=== PATIENT | female | born 1945 | race African-American/Black ===

== ENCOUNTER 2017-04-22 12:05 | Inpatient (IN) ==
--- NOTE | 2017-04-22 13:38 | Diag Imaging Result Doc PS360 ---
EXAM: XRAY HIP UNILATERAL RT HISTORY: deformity TECHNIQUE: Portable AP, two views COMPARISON: None. FINDINGS: There is an oblique fracture through the proximal femoral shaft. There may be a large fracture fragment. The fracture extends to the lesser trochanter. The femoral head remains in the acetabulum. Long-standing arthritic changes to the hip. IMPRESSION: Spiral fracture to the proximal femur Electronically signed by Nahun Hernandez 04/22/2017 1:36 PM
[2017-04-22 13:50] LABS: INR 1.06; PROTIME 11.2 Seconds (9.2-11.7)
[2017-04-22 13:57] LABS: ALBUMIN 3.5 g/dL (3.5-5.0); CALCIUM 8.7 mg/dL (8.8-10.2); POTASSIUM 4.3 mmol/L (3.5-5.1); TOTAL BILIRUBIN 0.39 mg/dL (0.20-1.00); TOTAL PROTEIN 7.9 g/dL (6.3-8.3)
[2017-04-22 14:06] LABS: BASO% 0.1 % (0.0-0.8); EOS% 1.4 % (0.0-10.0); HEMATOCRIT 35.9 % (37.0-47.0); HEMOGLOBIN 11.8 g/dL (12.0-16.0); IMM GRAN# 0.02 X1000 (0.0-0.04); IMM GRAN% 0.3 % (0.0-0.5); LYMPH# 1.78 X1000 (1.2-3.4); LYMPH% 25.5 % (20.5-51.1); MANUAL DIFF NEEDED? YES; MCH 30.3 PG (27-31); MCHC 32.9 g/dL (33-37); MCV 92.1 FL (81-99); MONO# 1.36 X1000 (0.11-0.59); MONO% 19.5 % (1.7-9.3); MPV 9.5 FL (7.4-10.4); NEUT% 53.2 % (42.2-75.2); PLT 253 X1000 (130-400)
--- NOTE | 2017-04-22 14:11 | Diag Imaging Result Doc PS360 ---
EXAM: CHEST-1 VIEW HISTORY: hip fx ? pre-op TECHNIQUE: Portable upright AP COMPARISON: 04/04/2013 FINDINGS: There is a right-sided portacatheter. No pneumothorax. The patient is rotated to the right. The lungs are well expanded. There are no infiltrates. No pleural effusions identified. IMPRESSION: Negative exam. Electronically signed by Nahun Hernandez 04/22/2017 2:08 PM
[2017-04-22 14:23] LABS: LYMPHS 32 % (21-51); MONO 13 % (1-9)
--- NOTE | 2017-04-22 14:48 | PROVIDER DOCUMENTATION ---
This chart was entered by Du Crawford Scribe, acting as scribe for Ryan Kramer MD. HPI-Musculoskeletal Pain/Inj - GENERAL Stated Complaint: HIP FRACTURE Time Seen by Provider: 04/22/17 12:21 Source: patient, EMS, RN notes reviewed - HX OF PRESENT ILLNESS-MUSKULOSKELTAL Nature of Presenting Problem: patient is a 72 y/o F that presents to the Er with right hip pain. Patient slipped 24 hours ago. she had outpatient xray done at nursing and it revealed a introchanteric fx. Sent here for admission and ortho consult. Quality of Pain: reports: dull Severity in ED: moderate Onset/Duration: abrupt, 24 hours ago Timing: still present Modifying Factors: worse with: movement Any recent injury?: No Locality of Occurance: Home Similar Symptoms Previously?: No Recently seen or treated by another doctor?: No - FALL INJURY Location of Pain/Injury: reports: lower extremity (right hip) Pain Radiation: reports: no radiation Reason for Fall: reports: slipped Symptoms prior to fall:: reports: none Loss of Consciousness: no loss of consciousness Injury Associated Symptoms: reports: joint pain. denies: diaphoresis, dizziness , headaches, vomiting Review of Systems - Adult - REVIEW OF SYSTEMS - ADULT Constitutional: reports: no symptoms reported Eyes: reports: no symptoms reported Ears, Nose, Mouth & Throat: reports: no symptoms reported Cardiovascular: reports: no symptoms reported Respiratory: reports: no symptoms reported Gastrointestinal: reports: no symptoms reported Genitourinary: reports: no symptoms reported Musculoskeletal: reports: joint pain. denies: back pain, neck pain Integumentary: reports: no symptoms reported Neurological: reports: no symptoms reported Psychiatric: reports: no symptoms reported Endocrine: reports: no symptoms reported Hematologic/Lymphatic: reports: no symptoms reported Allergic/Immunologic: reports: no symptoms reported All Other Systems: Reviewed and Negative Past History - Adult - PAST MEDICAL HISTORY-ADULT Review of Records: reports: Old Records Reviewed, Nursing Assessment Review, Medications Reviewed Musculoskeletal: reports: arthritis Neurological: reports: CVA, stroke deficits (right sided) - PRIOR SURGERIES/PROCEDURES Surgical/Procedure History: reports: reviewed, not pertinent - IMMUNIZATION STATUS Childhood Immunizations: See Nurse Assessment Flu Vaccine: See Nurse Assessment - FAMILY HISTORY Family History: reviewed, not pertinent - SOCIAL HISTORY Smoking: non-smoker Living Situation: care facility Physical Exam-Injury Related - Physical Exam-Injury Related Initial Vital Signs Reviewed: Yes General Appearance: alert, no apparent distress Eyes: PERRL/EOMI, pink conjunctivae Head, Ears, Nose, Mouth & Throat: normocephalic/atraumatic, moist mucous membranes, normal ENT inspection Neck: non-tender, full range of motion, normal inspection Respiratory: lungs clear, normal breath sounds, no respiratory distress, no accessory muscle use Cardiovascular: normal peripheral pulses, regular rate, rhythm, no edema Abdominal Exam: normal bowel sounds, non tender, soft Extremity: normal capillary refill, deformity (right hip with shortening and external rotation) Integumentary: normal color, warm/dry Neurologic: motor weakness (right sided previous cva). negative: aphasia, EOM palsy, facial droop Psych/Mental Status: normal mood/affect, normal thought content, normal thought process, oriented x 3 - Glascow Coma Score Best Eye Response (Danyelle): (4) open spontaneously Best Verbal Response (Danyelle): (5) oriented Best Motor Response ([place]): (6) obeys commands [place] Total: 15 Progress - PLAN OF CARE/RESULTS Progress/Plan/Lab Results: Vital Signs - 8 hr 04/22/17 12:41 04/22/17 13:00 04/22/17 14:00 Temperature 98 F Pulse Rate 91 H 82 78 Respiratory Rate 14 16 15 Blood Pressure 143/85 126/79 123/66 O2 Sat by Pulse Oximetry 94 L 94 L 97 Laboratory Results - last 24 hr 04/22/17 04/22/17 04/22/17 13:20 13:20 13:20 WBC 6.98 RBC 3.90 L Hgb 11.8 L Hct 35.9 L MCV 92.1 MCH 30.3 MCHC 32.9 L RDW Std Deviation 12.0 Plt Count 253 MPV 9.5 Immature Gran % (Auto) 0.3 Neut % (Auto) 53.2 Lymph % (Auto) 25.5 Towns % (Auto) 19.5 H Eos % (Auto) 1.4 Baso % (Auto) 0.1 Immature Gran # (Auto) 0.02 Neut # (Auto) 3.71 Lymph # (Auto) 1.78 Towns # (Auto) 1.36 H Eos # (Auto) 0.10 Baso # (Auto) 0.01 Segmented Neutrophils 55 Lymphocytes 32 Monocytes 13 H PT INR PTT (Actin FS) 26.3 Sodium 141 Potassium 4.3 Chloride 100 Carbon Dioxide 29 Anion Gap 12 BUN 12 Creatinine 1.3 H Estimated GFR/1.73 m2 49 BUN/Creatinine Ratio 9 Glucose 104 Calculated Osmolality 281 Calcium 8.7 L Total Bilirubin 0.39 AST 14 ALT 8 L Alkaline Phosphatase 78 Total Protein 7.9 Albumin 3.5 Globulin 4.4 Albumin/Globulin Ratio 0.8 04/22/17 13:20 WBC RBC Hgb Hct MCV MCH MCHC RDW Std Deviation Plt Count MPV Immature Gran % (Auto) Neut % (Auto) Lymph % (Auto) Towns % (Auto) Eos % (Auto) Baso % (Auto) Immature Gran # (Auto) Neut # (Auto) Lymph # (Auto) Towns # (Auto) Eos # (Auto) Baso # (Auto) Segmented Neutrophils Lymphocytes Monocytes PT 11.2 INR 1.06 PTT (Actin FS) Sodium Potassium Chloride Carbon Dioxide Anion Gap BUN Creatinine Estimated GFR/1.73 m2 BUN/Creatinine Ratio Glucose Calculated Osmolality Calcium Total Bilirubin AST ALT Alkaline Phosphatase Total Protein Albumin Globulin Albumin/Globulin Ratio Orders Category Date Time Status CHEST-1 VIEW [RAD] Stat Exams 04/22/17 12:33 Completed XRAY HIP UNILATERAL RT [RAD] Stat Exams 04/22/17 12:33 Completed CBC WITH DIFF [HEME] Stat Lab 04/22/17 13:20 Completed CMP [COMPREHENSIVE METABOLIC PANEL] [CHEM] Stat Lab 04/22/17 13:20 Completed PROTIME WITH INR [COAG] Stat Lab 04/22/17 13:20 Completed PTT [COAG] Stat Lab 04/22/17 13:20 Completed EKG [EKG] Stat Ther 04/22/17 12:33 Ordered Vital Signs Temp Pulse Resp BP Pulse Ox 04/22/17 14:00 78 15 123/66 97 04/22/17 13:00 82 16 126/79 94 L 04/22/17 12:41 98 F 91 H 14 143/85 94 L codeine [Codeine] Allergy (Unknown, Unverified 12/17/12 09:36) Unknown tuberculin, purified protein deriva Allergy (Unknown, Verified 12/22/12 09:11) Aspirin 325 mg PO DAILY 04/04/13 Baclofen 10 mg PO TID 04/04/13 Bisacodyl [Dulcolax] 10 mg IN PRN PRN 04/04/13 Calcium Carbonate [Calcarb 600] 600 mg PO BID 04/04/13 Fluticasone 50 Mcg Nasal [place] [Flonase] 1 spray ROMANA DAILY 04/04/13 Furosemide [Lasix] 20 mg PO DAILY 04/04/13 Furosemide [Lasix] 40 mg PO DAILY 04/04/13 Gabapentin [Neurontin] 400 mg PO TID 04/04/13 Guaifenesin [Wendie-Tussin] 15 ml PO Q6HR PRN 04/04/13 Hydrocodone/Acetaminophen [Lortab 7.5-500 Tablet] 1 each PO Q12H PRN PRN Hydrocortisone Supp [Anusol-Hc Supp] 25 mg IN BID PRN 04/04/13 Loperamide [Imodium] 2 mg PO PRN PRN 04/04/13 Loratadine [Claritin] 10 mg PO DAILY 04/04/13 Loratadine [Claritin] 10 mg PO DAILY 04/04/13 Mag Hydrox/Al Hydrox/Simeth [Mylanta Liquid] 30 ml PO Q6HR 04/04/13 Magnesium Hydroxide [Milk of Magnesia] 30 ml PO QHS 04/04/13 Multivits,Th W-Fe,Other Min [Therapeutic M] 1 each PO DAILY 04/04/13 Potassium Chloride 10 meq PO DAILY 04/04/13 Psyllium Seed [Hydrocil Instant] 1 each PO 04/04/13 Ranitidine [Zantac] 150 mg PO BID 04/04/13 Simethicone [Gas Free] 125 mg PO TID 04/04/13 Skin Cleanser [Cetaphil] 237 ml TP 04/04/13 Trazodone [Desyrel] 50 mg PO QHS 04/04/13 Triamcinolone 0.1% Cr [Kenalog 0.1% Cream] 1 applicatn TOP BID 04/04/13 Laboratory 04/22/17 04/22/17 04/22/17 13:20 13:20 13:20 WBC 6.98 RBC 3.90 L Hgb 11.8 L Hct 35.9 L MCV 92.1 MCH 30.3 MCHC 32.9 L RDW Std Deviation 12.0 Plt Count 253 MPV 9.5 Immature Gran % (Auto) 0.3 Neut % (Auto) 53.2 Lymph % (Auto) 25.5 Towns % (Auto) 19.5 H Eos % (Auto) 1.4 Baso % (Auto) 0.1 Immature Gran # (Auto) 0.02 Neut # (Auto) 3.71 Lymph # (Auto) 1.78 Towns # (Auto) 1.36 H Eos # (Auto) 0.10 Baso # (Auto) 0.01 Segmented Neutrophils 55 Lymphocytes 32 Monocytes 13 H PT 11.2 INR 1.06 PTT (Actin FS) Sodium 141 Potassium 4.3 Chloride 100 Carbon Dioxide 29 Anion Gap 12 BUN 12 Creatinine 1.3 H Estimated GFR/1.73 m2 49 BUN/Creatinine Ratio 9 Glucose 104 Calculated Osmolality 281 Calcium 8.7 L Total Bilirubin 0.39 AST 14 ALT 8 L Alkaline Phosphatase 78 Total Protein 7.9 Albumin 3.5 Globulin 4.4 Albumin/Globulin Ratio 0.8 04/22/17 13:20 WBC RBC Hgb Hct MCV MCH MCHC RDW Std Deviation Plt Count MPV Immature Gran % (Auto) Neut % (Auto) Lymph % (Auto) Towns % (Auto) Eos % (Auto) Baso % (Auto) Immature Gran # (Auto) Neut # (Auto) Lymph # (Auto) Towns # (Auto) Eos # (Auto) Baso # (Auto) Segmented Neutrophils Lymphocytes Monocytes PT INR PTT (Actin FS) 26.3 Sodium Potassium Chloride Carbon Dioxide Anion Gap BUN Creatinine Estimated GFR/1.73 m2 BUN/Creatinine Ratio Glucose Calculated Osmolality Calcium Total Bilirubin AST ALT Alkaline Phosphatase Total Protein Albumin Globulin Albumin/Globulin Ratio Result Diagrams: 04/22/17 13:20 04/22/17 13:20 - XRAY 1 XRAY: Right XRAY Study: Hip Impression: Abnormal XRAY Interpretation: spiral fx of the proximal femur - CONSULTS/PCP/HOSPITALIST Notification #1 *Consult/PCP/Hospitalist*: Erick CHAND with hospitalist Time Discussed: 14:35 Reason/Comments: accepted by Consult Disposition: Will see in ED, Admit Departure - Departure Date of Disposition Decision: 04/22/17 Time of Disposition Decision: 14:36 DIAGNOSIS: Fall Qualifiers: Encounter type: initial encounter Qualified Code(s): W19.XXXA - Unspecified fall, initial encounter Closed right hip fracture Qualifiers: Encounter type: initial encounter Qualified Code(s): S72.001A - Fracture of unspecified part of neck of right femur, initial encounter for closed fracture Disposition: ADMITTED INPATIENT 09 Certified Medical Emergency: Emergent Condition: Stable Referrals and Follow-Ups: Wilson Knapp MD [ACTIVE STAFF PHYSICIAN] - - Critical Care Note This patient required my direct & personal management of CC.: No This chart was documented by the indicated scribe, (Du Crawford, Scribe) and accurately reflects the services I performed and decisions made by me, Ryan Kramer MD, as attested by the provider's signature.
[2017-04-22] MEDS ORDERED: ZOFRAN IV PRN (15:50)
[2017-04-22] MEDS ORDERED: VENTOLIN HFA INH PRN (15:50)
--- NOTE | 2017-04-22 16:40 | HISTORY AND PHYSICAL ---
CHIEF COMPLAINT: Fall with right hip pain. HISTORY OF PRESENT ILLNESS: Mrs. Yost is a 72-year-old, female who resides at [facility]. She has a history of CVA with residual right-sided hemiplegia. She also carries a history of COPD and questionable dementia. She was taking a shower last night and fell. She was examined this morning and had a hip x-ray done, and was found to have a right spiral fracture to the proximal femur. Currently, secondary to her neuro status she is unable to give any type of history. Thus, history is obtained per chart review. She did state, however, that she did not think she hit her head or lose any consciousness. Otherwise a review of systems was unable to be obtained. PAST MEDICAL HISTORY: 1. History of cerebrovascular accident with right-sided hemiplegia. 2. Osteoarthritis. 3. Insomnia. 4. Allergic rhinitis. 5. COPD. 6. GERD. 7. Dysphagia, pharyngeal-esophageal phase. PAST SURGICAL HISTORY: Right ankle surgery, right knee surgery, partial hysterectomy, port placement secondary to poor IV access. SOCIAL HISTORY: The patient has a remote history of nicotine dependence. She is . She has 1 child and lives at [facility]. FAMILY HISTORY: Unknown. REVIEW OF SYSTEMS: Unable to obtain. ALLERGIES: Codeine, tuberculin, purified protein derivative. HOME MEDICATIONS: Albuterol/Atrovent nebs, Ventolin HFA inhaled as needed, aspirin 81 mg daily, baclofen 10 mg t.i.d., Dulcolax 10 mg per rectum as needed, calcium carbonate 600 mg p.o. b.i.d., Pepcid 20 mg daily, fluticasone 1 spray nasally daily, Lasix 80 mg daily, Neurontin 400 mg p.o. t.i.d., [place] every 12 hours for pain, Linzess 145 mcg daily, Claritin 10 mg daily, multivitamin daily, KCl 10 mEq p.o. daily, trazodone 50 mg p.o. at bedtime. PHYSICAL EXAMINATION: VITAL SIGNS: Blood pressure is 133/72, heart rate 79, respiratory rate 16, O2 saturation 98% on room air, temperature is 98 degrees. GENERAL: This is an elderly and frail appearing, 72-year-old, female lying in the hospital bed, in no acute distress. NEUROLOGIC: The patient is a bit sleepy. She opens her eyes to verbal stimulus. She is unable to follow commands on the right side. She does squeeze my hand and wiggle her toes on the left. HEENT: Head is atraumatic and normocephalic. Her pupils are equal, round, and reactive to light. Oral mucosa is dry. Trachea is midline. There is no JVD. CHEST: Clear to auscultation bilaterally. CARDIOVASCULAR: Regular rate and rhythm. S1-S2 is noted. GASTROINTESTINAL: Soft, nondistended, nontender. Bowel sounds are positive. EXTREMITIES: Right lower extremity externally rotated and shortened a bit. NEUROVASCULAR: Intact. EXTREMITIES: Both lower extremities with trace edema and diminished pulses. DIAGNOSTIC DATA: Hip x-ray shows right spiral fracture of the proximal femur. Chest x-ray does not show anything acute. WBC 6.9, hemoglobin 11.8, hematocrit 35.9, platelet count 253, INR 1.06, sodium 141, potassium 4.3, chloride 100, CO2 29, anion gap 12, BUN 12, creatinine 1.3, glucose 104, calcium 8.7. LFTs within normal limits. Albumin 3.5. ASSESSMENT AND PLAN: 1. Acute right proximal femur fracture: Patient will be admitted and we will consult Orthopedics. We will keep her NPO. Add IV fluids and pain medication as well as antiemetics if needed. We will consult Physical Therapy and Social Work for long-term planning. 2. History of cerebrovascular accident with right-sided hemiplegia: This is overall chronic and stable. We will continue to monitor. 3. Chronic obstructive pulmonary disease: Chronic and stable, continue home medications. 4. Gastroesophageal reflux disease: Chronic and stable, continue home medications. 5. Mild renal insufficiency: Creatinine 1.3 with a GFR 49. We will add IV fluids and withhold any nephrotoxic medications. 6. Normocytic anemia: We will check B12 and folate, and iron with iron binding in the morning as well as thyroid function. 7. DVT prophylaxis will be provided after hip repair. 8. Further recommendations to follow. Dictated by MANNIE Bang for Primitivo Najera MD cc: MANNIE Bang MD I have seen and examined patient and I agree with the above plan. Right spiral fracture of proximal femur, orthopedics have been notified. [facility]
[2017-04-22] MEDS: MORPHINE IV PRN (17:42)
[2017-04-22] MEDS: NS 1,000 ML IV SCH (17:42)
[2017-04-22] MEDS: DESYREL PO SCH (20:32)
[2017-04-22] MEDS: ALBUTEROL NEB INH PRN (23:00)
[2017-04-22] MEDS: ATROVENT NEB INH PRN (23:00)
[2017-04-23] MEDS: NS 1,000 ML IV SCH ×4 (03:51→18:29)
--- NOTE | 2017-04-23 04:08 | CONSULTATION ---
DATE OF CONSULTATION: 04/22/2017 CHIEF COMPLAINT: Right hip pain. HISTORY OF PRESENT ILLNESS: Ms. Yost is a 72-year-old, female who last night was taking a shower and she fell. She resides at [facility]. This morning, she was brought to the emergency room for evaluation where radiographic findings revealed a displaced spiral fracture of the proximal femur on the right side and we were asked to further evaluate. She has a history of a CVA 20 years ago with residual right-sided hemiplegia but before this recent injury, she was able to ambulate. She states that with her fall, she did not have any loss of consciousness, headaches, or visual disturbances. PRIMARY CARE PROVIDER: None. ALLERGIES: Codeine, tuberculin purified protein derivative. PAST MEDICAL HISTORY: 1. History of cerebrovascular accident with right-sided hemiplegia. 2. Osteoarthritis. 3. Insomnia. 4. Allergic rhinitis. 5. COPD. 6. GERD. 7. Dysphagia, pharyngoesophageal phase. PAST SURGICAL HISTORY: 1. Right ankle surgery. 2. Right knee surgery. 3. Partial hysterectomy. 4. Port placement secondary to poor IV access. SOCIAL HISTORY: The patient resides at [facility]. CURRENT MEDICATIONS: 1. Albuterol/Atrovent nebulizers, Ventolin HFA inhaled as needed. 2. Aspirin 81 mg daily. 3. Baclofen 10 mg t.i.d. 4. Dulcolax 10 mg per rectum as needed. 5. Calcium carbonate 600 mg p.o. b.i.d. 6. Pepcid 20 mg daily. 7. Fluticasone 1 spray nasally daily. 8. Lasix 80 mg daily. 9. Neurontin 400 mg p.o. t.i.d. 10. [place] every 12 hours for pain. 11. Linzess 145 mcg daily. 12. Claritin 10 mg daily. 13. Multivitamin daily. 14. Potassium chloride 10 mEq p.o. daily. 15. Trazodone 50 mg p.o. at bedtime. REVIEW OF SYSTEMS: A 10 point review of systems was discussed with the patient and was otherwise negative other than what was stated in the HPI above. PHYSICAL EXAMINATION: General: The patient is resting comfortably at bedside. She is able to articulate and answer all questions fully. HEENT: Head is normocephalic, atraumatic. Neck: Supple. Heart: Regular rate and rhythm. Lungs: Clear to auscultation bilaterally. Abdomen: Round. Bowel sounds are present. Neurological: She discerned soft touch to the affected extremity. Musculoskeletal: Right hip, she does have some deformity of the right hip but I do not appreciate any ecchymoses. Neurovascular status is intact with good peripheral pulses. Other: She has a port in her right upper chest. IMPRESSION: Displaced spiral fracture of the right proximal femur. PLAN: Right trochanteric fixation nail. The risks and benefits of surgery were explained to the patient including the risks of anesthesia, , bleeding, infection, damage to tendons, ligaments, nerves, blood vessels, possibility of bleeding, blood clots, and other imponderables were discussed with the patient, and she wishes to proceed with operative management at this time. Dictated by SHANON Gomes for Pramod Connor MD cc: SHAONN Gomes MD MTD
[2017-04-23] MEDS: MORPHINE IV PRN (06:21)
[2017-04-23 07:15] LABS: HEMOGLOBIN 11.8 g/dL (12.0-16.0); MCHC 31.9 g/dL (33-37); MCV 94.1 FL (81-99); RBC 3.93 XMIL (4.2-5.4)
[2017-04-23 07:28] LABS: CALCIUM 8.9 mg/dL (8.8-10.2); POTASSIUM 3.6 mmol/L (3.5-5.1)
[2017-04-23 07:55] LABS: HEMOGLOBIN A1C 5.9 % (4.8-6.0)
[2017-04-23] MEDS: ALBUTEROL NEB INH PRN ×2 (10:17→19:04)
[2017-04-23] MEDS ORDERED: SODIUM CHLORIDE 0.9% 20 ML ONE (11:08)
[2017-04-23] MEDS ORDERED: ZOFRAN ONE (11:08)
[2017-04-23] MEDS ORDERED: NEO-SYNEPHRINE ONE (11:08)
[2017-04-23] MEDS ORDERED: XYLOCAINE-MPF 2% ONE (11:08)
[2017-04-23] MEDS ORDERED: ROBINUL ONE (11:08)
[2017-04-23] MEDS ORDERED: DIPRIVAN 1% ONE (11:08)
[2017-04-23] MEDS ORDERED: FENTANYL ONE (11:09)
[2017-04-23] MEDS ORDERED: KEFZOL 2 GM/D5W 2 GM/50 ML IVPB ONE (11:31)
[2017-04-23] MEDS ORDERED: OFIRMEV 1000 MG/ISOTONIC SOLN 1,000 MG/100 ML BOTTLE ONE (11:50)
[2017-04-23 12:37] LABS: URINE MICRO REVIEW NEEDED? NO; URINE SOURCE CATH
[2017-04-23 12:42] LABS: BILIRUBIN URINE NEGATIVE (NEGATIVE); BLOOD URINE TRACE (NEGATIVE); COLOR YELLOW; GLUCOSE URINE NEGATIVE (NEGATIVE); LEUKOCYTES URINE LARGE (NEGATIVE); NITRITE URINE POSITIVE (NEGATIVE); PROTEIN URINE TRACE mg/dL (NEGATIVE); SP GRAVITY URINE 1.012; TURBIDITY URINE HAZY (CLEAR); UROBILINOGEN URINE NORMAL (NORMAL)
[2017-04-23 12:44] LABS: UR EPITHELIAL CELLS <10 /HPF (<10); URINE BACTERIA 4+ /HPF; URINE RBC <10 /HPF (<10); URINE WBC TNTC /HPF (<10)
--- NOTE | 2017-04-23 14:03 | OPERATIVE NOTE ---
PROCEDURE DATE: 04/23/2017 PREOPERATIVE DIAGNOSIS: Right subtrochanteric femur fracture. POSTOPERATIVE DIAGNOSIS: Right subtrochanteric femur fracture. PROCEDURE: Intramedullary nailing right femur with a Synthes 11 x 360 mm TFN nail. SURGEON: Rudy Roque MD PUBLIC POLICY ANALYST: SHANON Oneil ANESTHESIA: General. IV FLUIDS: 500 mL lactated Ringer's. ESTIMATED BLOOD LOSS: 40 mL. COMPLICATIONS: None. INDICATION: The patient is a 72-year-old female, who is status post fall yesterday. She is status post a CVA with right-sided hemiplegia many years ago. She is currently nonambulatory. She was seen in the emergency room, x-rays revealed a fracture. The patient was admitted to the hospital and recommendation to proceed with intramedullary nailing of the right femur was offered. Risks and benefits of surgery explained includes risks of anesthesia, , bleeding, infection, failure to relieve pain, postoperative stiffness, nerve injury, blood clots, and other imponderables. All questions were answered. Patient and family wished to proceed with surgery. DETAILS OF OPERATION: The patient was taken to the operating room and placed supine on the operating table. Once adequate anesthesia was obtained, the patient was placed on the fracture table. Reduction of the fracture was confirmed with C-arm visualization. The right lower extremity was subsequently prepped and draped in the usual sterile fashion. Approximately 3 fingerbreadths proximal to the greater trochanter a lateral incision was made. Blunt dissection performed to the gluteus tor. A guide pins was then placed on the tip of the greater trochanter into the intramedullary canal. The starting reamer was then passed after confirming good positioning with C-arm visualization. A ball-tip guide pin was then placed into the intramedullary canal, across the fracture site. The length of the nail determined to be 360 mm. A 12 mm reamer was then easily passed. An 11 x 360 mm Synthes TFN nail was then placed. Ball-tipped guide pins were then removed. Using the outrigger guide, an incision was made along the proximal femoral shaft. This was then placed along the lateral cortex. Guide pins then placed across the femoral neck into femoral head. Good position was confirmed with C-arm visualization. Lateral cortex was reamed. A 95 mm helical blade was then impacted in position, had good purchase. The proximal set screw was tightened. Using perfect [place] technique distally 2 distal locking screws were placed through 2 separate stab incisions. Final C-arm visualization showed good alignment of fracture and good position of the hardware. The wounds were copiously irrigated. Number 1 Vicryl was used to repair the deep fascia and proximal wound, followed by 2-0 Vicryl in the 2 proximal surgical incisions 2 wounds and skin chari then placed on all the wounds. Adaptic, sterile 4 x 4, ABD pad, and tape applied to the right lower extremity. Patient tolerated the procedure well with no complications. She was transferred to the recovery room in stable condition. cc: Rudy Roque MD MTDD
--- NOTE | 2017-04-23 14:04 | PROGRESS NOTE ---
DATE: 04/23/2017 SUBJECTIVE: Today Ms. Yost referred to be doing okay. Continues to have some pain in the right leg where she has the fracture. The patient has been evaluated by ortho and she is pending intervention today. OBJECTIVE: Vital signs: Blood pressure was 145/66, pulse of 87, respirations 18, temperature 98.1 degrees. General exam: Ms. Yost is a 72-year-old female. She was in bed, was not in any remarkable distress. HEENT: Mucosa is pink and moist. Anicteric. Acyanotic. Neck: Supple. Chest: Good air entry bilateral. No crepitations. Cardiovascular: Regular rate and rhythm. Abdomen: Soft. Extremities: There was no pedal edema. The right is externally rotated and looks short. There is some tenderness to the proximal aspect of the thigh consistent with the fracture. IMAGING: A hip x-ray which was done yesterday shows a spiral fracture of the proximal femur. ASSESSMENT: 1. Acute right proximal femur fracture. Patient has been evaluated by orthopedics and she is pending fracture repair today. 2. History of cerebrovascular disease with right-sided hemiplegia noted. 3. Mild normocytic anemia secondary to chronic illness. 4. Acute kidney injury, improving. cc: Primitivo Najera MD
[2017-04-23] MEDS ORDERED: HALDOL IV PRN (14:09)
[2017-04-23] MEDS ORDERED: ZOFRAN IV PRN (14:09)
[2017-04-23] MEDS ORDERED: MORPHINE IV PRN (14:09)
[2017-04-23] MEDS ORDERED: MILK OF MAGNESIA PO PRN (14:09)
[2017-04-23] MEDS: LINZESS PO SCH (14:19)
[2017-04-23] MEDS: PEPCID PO SCH (14:20)
[2017-04-23] MEDS: CLARITIN PO SCH (14:23)
[2017-04-23] MEDS: TYLENOL PO SCH ×3 (14:28→23:02)
[2017-04-23] MEDS: ATROVENT NEB INH PRN (19:03)
[2017-04-23] MEDS: COLACE PO SCH (20:56)
[2017-04-23] MEDS: DESYREL PO SCH (20:56)
[2017-04-23] MEDS: PERIDEX MT SCH (20:56)
[2017-04-23] MEDS: KEFZOL 2 GM/D5W 2 GM/50 ML IVPB IV SCH (20:57)
[2017-04-24] MEDS: KEFZOL 2 GM/D5W 2 GM/50 ML IVPB IV SCH (03:32)
[2017-04-24] MEDS: NS 1,000 ML IV SCH ×4 (03:33→15:47)
[2017-04-24] MEDS: OXY IR PO PRN ×3 (04:52→13:13)
[2017-04-24] MEDS: TYLENOL PO SCH ×3 (05:52→20:59)
[2017-04-24 07:00] LABS: HEMATOCRIT 30.4 % (37.0-47.0); HEMOGLOBIN 9.7 g/dL (12.0-16.0); MCH 30.5 PG (27-31); MCHC 31.9 g/dL (33-37); MCV 95.6 FL (81-99); MPV 10.8 FL (7.4-10.4); RBC 3.18 XMIL (4.2-5.4)
[2017-04-24 07:10] LABS: AGAP 14; BUN 7 mg/dL (8-22); CHLORIDE 101 mmol/L (98-107); COSMO 280; POTASSIUM 3.3 mmol/L (3.5-5.1); SODIUM 141 mmol/L (136-145); TCO2 26 mmol/L (25-35)
[2017-04-24] MEDS: ATROVENT NEB INH PRN (08:04)
[2017-04-24] MEDS: ALBUTEROL NEB INH PRN (08:04)
--- NOTE | 2017-04-24 08:17 | PROGRESS NOTE ---
DATE: 04/24/2017 SUBJECTIVE: The patient is a pleasant 72-year-old female who is 1 day status post intramedullary nailing of her right subtrochanteric femur fracture. She has experienced some discomfort this morning. OBJECTIVE: On physical exam, the wound looks good. There are no signs or symptoms of infection. Her calf is soft. She has a chronic weakness in the right lower extremity secondary to hemiplegia. Her labs are pending. IMPRESSION: Postoperative day #1, status post intramedullary nailing right femur. PLAN: At this point, will mobilize the patient from oxy-ic-pabtv with transfers and will also change her dressing tomorrow. We will await her lab results. cc: Rudy Roque MD
[2017-04-24] MEDS: LINZESS PO SCH (09:05)
[2017-04-24] MEDS: PEPCID PO SCH (09:05)
[2017-04-24] MEDS: FERROUS SULFATE PO SCH (09:06)
[2017-04-24] MEDS: PERIDEX MT SCH ×2 (09:06→20:58)
[2017-04-24] MEDS: CLARITIN PO SCH (09:07)
--- NOTE | 2017-04-24 15:19 | PROGRESS NOTE ---
DATE: 04/24/2017 SUBJECTIVE: Today Ms. Yost refers to be doing a little better. Still complained of some pain in the right hip. She had the surgery yesterday, and she is doing a lot better today. OBJECTIVE: Vital Signs: Stable. Blood pressure is 144/70, pulse of 87, respirations 18 and temperature 99.2 degrees. General exam: Ms. Yost is a 72-year-old, female. She is in bed, not seemingly distressed. HEENT: Mucosa is pink and moist. Anicteric. Acyanotic. Neck: Supple. Chest: Clear. Cardiovascular: Regular rate and rhythm. Abdomen: Soft. NURSE FIRST AID: Patient is awake and alert. She has a right-sided hemiplegia. The right lower extremity is also externally rotated, and there is recent dressing over the surgical wound. I did not pull the dressing. LABORATORY DATA: WBC is 10.83, hemoglobin is 9.7, platelet count of 139. Chemistry is reviewed and unremarkable. PATIENT MEDICATIONS: These have been reviewed. She is currently on: 1. Acetaminophen p.r.n. 2. Colace 200 p.o. at bedtime. 3. Famotidine 20 mg daily. 4. Iron sulfate 325. 5. Linaclotide. 6. Milk of magnesia. 7. Morphine 2 mg IV q. 2 hours p.r.n. 8. OxyContin 5 mg q. 3 hours p.r.n. 9. Trazodone. ASSESSMENT: 1. Acute right proximal femur fracture status post intramedullary nailing of the right femur with Synthes by Dr. Roque. Today is day one postoperatively. Patient seems to be doing remarkably fine. 2. History of cerebrovascular disease with right side hemiparesis. 3. Mild normocytic anemia due to chronic illness. 4. Acute kidney injury, improved. PLAN: Ms Yost is doing fine. We are going to continue with the current pain management. She would have physical therapy over the weekend, and hopefully we might be able to discharge her to the long term rehab on Thursday. We will start her on DVT prophylaxis with Lovenox with anticipation of transitioning this to p.o. Rivaroxaban or Eliquis for the DVT prophylaxis for the hip surgery. cc: Primitivo Najera MD
[2017-04-24] MEDS: DUONEB (A & A) INH PRN ×2 (15:45→21:08)
[2017-04-24] MEDS: MORPHINE IV PRN (20:52)
[2017-04-24] MEDS: COLACE PO SCH (20:58)
[2017-04-24] MEDS: DESYREL PO SCH (21:00)
[2017-04-25] MEDS: TYLENOL PO SCH ×4 (00:04→21:52)
[2017-04-25] MEDS: OXY IR PO PRN ×4 (02:17→21:53)
[2017-04-25] MEDS: NS 1,000 ML IV SCH ×2 (02:53→16:46)
[2017-04-25] MEDS: DUONEB (A & A) INH PRN ×4 (03:26→19:39)
[2017-04-25 06:36] LABS: HEMATOCRIT 27.3 % (37.0-47.0); HEMOGLOBIN 8.9 g/dL (12.0-16.0); MCH 30.4 PG (27-31); MCHC 32.6 g/dL (33-37); MCV 93.2 FL (81-99); MPV 9.3 FL (7.4-10.4); RBC 2.93 XMIL (4.2-5.4)
[2017-04-25 07:18] LABS: AGAP 17; BUN 6 mg/dL (8-22); CALCIUM 8.1 mg/dL (8.8-10.2); CHLORIDE 103 mmol/L (98-107); COSMO 281; POTASSIUM 3.3 mmol/L (3.5-5.1); SODIUM 142 mmol/L (136-145); TCO2 22 mmol/L (25-35)
[2017-04-25] MEDS ORDERED: KLOR-CON PO ONE (08:11)
--- NOTE | 2017-04-25 09:33 | PROGRESS NOTE ---
DATE: 04/25/2017 SUBJECTIVE: The patient is a pleasant 72-year-old female who is 2 days status post intramedullary nailing of the right femur. She is currently resting comfortably. OBJECTIVE: On physical exam, patient's right lower extremity wounds look good. There are no signs or symptoms of infection. Compartments are soft. Her hemoglobin is 8.9 and hematocrit is 27.3. IMPRESSION: Postoperative day #2, status post right intramedullary nailing, right femur. PLAN: At this point, the patient will be [id number] transfer, and she is stable from an orthopedic standpoint. We will be available if needed. cc: Rudy Roque MD
[2017-04-25] MEDS: LINZESS PO SCH (09:37)
[2017-04-25] MEDS: FERROUS SULFATE PO SCH (09:37)
[2017-04-25] MEDS: PEPCID PO SCH (09:37)
[2017-04-25] MEDS: CLARITIN PO SCH (09:37)
[2017-04-25] MEDS: PERIDEX MT SCH ×2 (09:37→21:53)
[2017-04-25] MEDS: MORPHINE IV PRN (11:52)
--- NOTE | 2017-04-25 14:31 | PROGRESS NOTE ---
DATE: 04/25/2017 SUBJECTIVE: Today Ms. Yost referred to be doing better. Still has some pain in the in the legs. Has been able to participate in rehab physical therapy today. OBJECTIVE: Vital signs: Blood pressure is 141/68, pulse of 91, respirations 18, temperature 98.7 degrees. General: Ms. Yost 72-year-old female. She is in bed in mild painful distress. HEENT: Mucosa is pink and moist. Anicteric. Acyanotic. Neck: Supple. Chest: Clear. Cardiovascular: Regular rate and rhythm. Abdomen: Soft. Extremities: No pedal edema. DEPARTMENTAL BUYER: Patient is awake and alert. Has a right side hemiplegia. Right lower extremity is extended, rotated and some tenderness in the proximal aspect of the thigh. LABORATORY DATA: Hemoglobin is 8.9. Chemistry is reviewed. Unremarkable except for potassium which is 3.3, will be replaced. ASSESSMENT: 1. Acute right proximal femur fracture status post intramedullary nailing by Dr. Roque. Today is day 2 postop. Patient is doing fine. Has been able to participate in physical therapy. 2. History of cerebrovascular disease with right side hemiparesis. 3. Normocytic anemia due to chronic illness. 4. Acute kidney injury improved. 5. Mild hypokalemia. Will replace this. cc: Primitivo Najera MD
[2017-04-25] MEDS: COLACE PO SCH (21:52)
[2017-04-25] MEDS: DESYREL PO SCH (21:53)
[2017-04-26] MEDS: MORPHINE IV PRN ×2 (01:08→13:14)
[2017-04-26] MEDS: DUONEB (A & A) INH PRN ×4 (04:23→21:36)
[2017-04-26] MEDS: OXY IR PO PRN ×5 (04:26→23:46)
[2017-04-26 05:55] LABS: HEMATOCRIT 28.6 % (37.0-47.0); HEMOGLOBIN 9.1 g/dL (12.0-16.0)
[2017-04-26] MEDS: TYLENOL PO SCH ×4 (06:19→22:15)
[2017-04-26 06:25] LABS: AGAP 8; BUN 6 mg/dL (8-22); CALCIUM 8.5 mg/dL (8.8-10.2); CHLORIDE 104 mmol/L (98-107); COSMO 281; POTASSIUM 3.8 mmol/L (3.5-5.1); SODIUM 142 mmol/L (136-145); TCO2 30 mmol/L (25-35)
[2017-04-26] MEDS: CLARITIN PO SCH (08:36)
[2017-04-26] MEDS: LINZESS PO SCH (08:36)
[2017-04-26] MEDS: FERROUS SULFATE PO SCH (08:36)
[2017-04-26] MEDS: PEPCID PO SCH (08:37)
[2017-04-26] MEDS: PERIDEX MT SCH ×2 (08:37→20:39)
--- NOTE | 2017-04-26 16:49 | PROGRESS NOTE ---
DATE: 04/26/2017 SUBJECTIVE: Today Ms. Yost refers to be doing relatively fine. Pain is a whole lot better than before. OBJECTIVE: Vital signs: Blood pressure is 128/70, pulse of 97, respirations 18, temperature 98.2 degrees. General: Ms. Yost 72-year-old female. She is in bed, no distress. HEENT: Mucosa is pink and moist. Anicteric. Acyanotic. Neck: Supple. Chest: Clear. Cardiovascular: Regular rate and rhythm. No murmurs, no rubs. Abdomen: Soft. Extremities: No pedal edema. IT ACCOUNT MANAGER: Patient is awake, alert and oriented. Has a right-sided hemiplegia. Mild tenderness in the right lower extremity. LABORATORY DATA: Hemoglobin is 9.1. Chemistry is reviewed completely normal. Potassium is improved. Patient had a PT yesterday at the bedside. ASSESSMENT: 1. Acute right proximal femur fracture status post intramedullary nailing by Dr. Roque, today day 3 postop. Patient is doing fine. 2. History of cerebrovascular disease with right side hemiparesis. 3. Normocytic anemia due to chronic illness, hemoglobin and hematocrit is stable. 4. Acute kidney injury resolved. 5. Mild hypokalemia resolved. PLAN: So in general I think Ms Yost is relatively stable. We are going to continue with adequate pain management and physical rehabilitation and hopefully we can discharge Ms. Yost to the rehab center tomorrow to continue with physical rehabilitation. cc: Primitivo Najera MD
[2017-04-26] MEDS: COLACE PO SCH (20:39)
[2017-04-26] MEDS: DESYREL PO SCH (20:39)
[2017-04-27] MEDS: DUONEB (A & A) INH PRN ×4 (03:11→21:52)
[2017-04-27] MEDS: OXY IR PO PRN ×5 (03:45→23:51)
[2017-04-27] MEDS: TYLENOL PO SCH ×3 (05:50→22:16)
[2017-04-27] MEDS: LINZESS PO SCH (09:39)
[2017-04-27] MEDS: FERROUS SULFATE PO SCH (09:39)
[2017-04-27] MEDS: CLARITIN PO SCH (09:39)
[2017-04-27] MEDS: PEPCID PO SCH (09:40)
[2017-04-27] MEDS: PERIDEX MT SCH ×2 (09:40→22:16)
--- NOTE | 2017-04-27 16:45 | PROGRESS NOTE ---
DATE: 04/27/2017 SUBJECTIVE: Today Ms. Yost refers to be doing a little better. She continues to have some pain in the right hip. OBJECTIVE: Vital signs: Blood pressure is 135/65, pulse of 80, respirations 15 , temperature 97.8 degrees. General examination: Ms. Yost is a 72-year-old, female. She is in bed in mild painful distress. HEENT: Mucosa is pink and moist. Anicteric. Acyanotic. Neck: Supple. Chest: Good air entry bilateral. No crepitations. No rhonchi. Cardiovascular: Regular rate and rhythm. Abdomen: Soft. Extremities: No pedal edema. There is tenderness to palpation of the right thigh. Central Nervous System: Patient is awake, alert and oriented. He has right-sided hemiplegia. LABORATORY: No lab work for today. ASSESSMENT: 1. Acute right proximal femur fracture status post intramedullary nailing by Dr. Roque. Today is day 4. Patient is doing fine. She is getting physical therapy, however, she has not been able to bear weight. The patient is getting physical therapy just a the bedside. We are using rivaroxaban for deep vein thrombosis prophylaxis. 2. History of cerebrovascular disease with right-sided hemiparesis. 3. Normocytic anemia due to chronic illness. Hemoglobin and hematocrit is stable. 4. Acute kidney injury on presentation resolved. 5. Hypokalemia resolved. In general, I think Ms. Yost is doing a lot better. She continues to have remarkable pain from the surgery and she is needing IV pain medication. We are going to continue with that to get better pain control before we discharge her. She will continue with physical rehabilitation and hopefully by Thursday we can discharge Ms. Yost. Ms Yost is a resident of [facility] so we will be able to let her go on Thursday. cc: Primitivo Najera MD MTDD
[2017-04-27] MEDS: COLACE PO SCH (22:16)
[2017-04-27] MEDS: DESYREL PO SCH (22:16)
[2017-04-28] MEDS: OXY IR PO PRN ×5 (02:55→23:45)
[2017-04-28] MEDS: DUONEB (A & A) INH PRN ×2 (03:42→07:39)
[2017-04-28] MEDS: TYLENOL PO SCH ×3 (06:15→22:29)
[2017-04-28] MEDS: XARELTO PO SCH (06:15)
--- NOTE | 2017-04-28 08:13 | PROGRESS NOTE ---
DATE: 04/28/2017 SUBJECTIVE: The patient is a pleasant, 72-year-old female who is 5 days status post intramedullary nailing for a right subtrochanteric femur fracture. She has improvement with regards to her pain. OBJECTIVE: On physical examination of the patient's right lower extremity, her wounds looked good. There are no signs or symptoms of infection. Her compartments are soft. IMPRESSIONS: Postoperative day #5 status post intramedullary nailing of the right femur. PLAN: At this point, the patient is feeling better overall with regards to her pain. She will continue with physical therapy with [id number] transfers and may be weightbearing as tolerated through the right lower extremity. The patient will continue working with physical therapy with transfers. The patient is status post CVA with right-sided hemiparesis. She is stable from an orthopedic standpoint and she will be maintained on Xarelto. cc: Rudy Roque MD
[2017-04-28] MEDS: LINZESS PO SCH (08:22)
[2017-04-28] MEDS: FERROUS SULFATE PO SCH (08:23)
[2017-04-28] MEDS: CLARITIN PO SCH (08:24)
[2017-04-28] MEDS: PEPCID PO SCH (08:24)
[2017-04-28] MEDS: PERIDEX MT SCH ×2 (09:00→22:29)
[2017-04-28] MEDS ORDERED: NORCO-7.5 PO PRN (14:26)
[2017-04-28] MEDS ORDERED: DULCOLAX PR PRN (14:26)
--- NOTE | 2017-04-28 15:11 | PROGRESS NOTE ---
DATE: 04/28/2017 SUBJECTIVE: The patient has no focal complaints. She is up sitting in bed, looking well. OBJECTIVE: Vital Signs: Blood pressure 124/70, heart rate 66, respiratory 16, temperature 97.8 degrees, and oxygen saturation 97% on 2 liters. Cardiovascular: Regular rate and rhythm. Pulmonary: Bilateral breath sounds. Clear to auscultation. Gastrointestinal: Abdomen is soft, nontender, nondistended. Bowel sounds are positive. LABORATORY DATA: Hemoglobin and hematocrit are 9 and 28. Basic was normal. PROBLEM LIST: 1. Right proximal femur fracture, status post open reduction internal fixation, day 5 postoperative. She is doing well. 2. History of cerebrovascular accident with right-sided weakness, appears to be stable. 3. Anemia, appears to be stable. DISPOSITION: Plan for rehab tomorrow. We will make arrangements for transfer. I think she has got a bed available at [facility]. cc: Ramiro Vaughn MD
[2017-04-28] MEDS: NEURONTIN PO SCH (16:07)
[2017-04-28] MEDS: LIORESAL PO SCH (16:07)
[2017-04-28] MEDS: COLACE PO SCH (22:29)
[2017-04-28] MEDS: CALTRATE 600 PO SCH (22:29)
[2017-04-28] MEDS: DESYREL PO SCH (22:29)
[2017-04-29] MEDS: OXY IR PO PRN ×2 (02:56→09:21)
[2017-04-29] MEDS: TYLENOL PO SCH ×2 (06:05→13:45)
[2017-04-29] MEDS: XARELTO PO SCH (06:05)
[2017-04-29] MEDS ORDERED: LASIX PO SCH ×2 (09:00)
[2017-04-29] MEDS ORDERED: ASPIRIN PO SCH (09:00)
[2017-04-29] MEDS ORDERED: THERA M PLUS PO SCH (09:00)
[2017-04-29] MEDS ORDERED: FLONASE NAS SCH (09:00)
[2017-04-29] MEDS ORDERED: KLOR-CON PO SCH (09:00)
[2017-04-29] MEDS: PERIDEX MT SCH (09:20)
[2017-04-29] MEDS: LINZESS PO SCH (09:21)
[2017-04-29] MEDS: FERROUS SULFATE PO SCH (09:22)
[2017-04-29] MEDS: PEPCID PO SCH (09:22)
[2017-04-29] MEDS: NEURONTIN PO SCH ×2 (09:22→13:45)
[2017-04-29] MEDS: CALTRATE 600 PO SCH (09:22)
[2017-04-29] MEDS: LIORESAL PO SCH ×2 (09:22→13:45)
[2017-04-29] MEDS: CLARITIN PO SCH (09:23)
--- NOTE | 2017-04-29 13:51 | DISCHARGE SUMMARY ---
ADMISSION DATE: 04/22/2017 DISCHARGE DATE: 04/29/2017 DISCHARGE DIAGNOSES: 1. Right proximal femoral fracture. 2. History of cerebrovascular accident. 3. Anemia after surgery. 4. Retention. CONSULTATIONS: Dr. Roque. PROCEDURES: Open reduction, internal fixation with intramedullary right femur pinning. Briefly this is a 72-year-old female with history of CVA and right-sided weakness admitted on the . She fell, had a right spiral fracture of the proximal femur. She was evaluated by Orthopedics and they recommended surgery which she underwent on the . She pretty much had a pretty normal postop course. Pain management was achieved. She progressed with physical therapy somewhat. Plan was to transfer to rehab which was delayed little bit because of the holiday weekend surrounding April 28. No major issues. On the she was felt stable for discharge. Hemoglobin and hematocrit was 9 and 28. She was at baseline actually on the . DISCHARGE CONDITION: Stable. DISCHARGE MEDS: As follows: Albuterol 4 times a day. Aspirin 81 daily. Baclofen 10 t.i.d. Dulcolax p.r.n. Calcium carbonate 600 b.i.d. Pepcid 20 daily. Fluticasone daily. Lasix 40 daily, a total of 120 daily. Neurontin 400 t.i.d. [place] stopped right now. Atrovent q.i.d. Linzess 145 daily. Claritin 10 daily. Multivitamin daily. She was given Percocet because that is which she had been getting for pain here 7.5 q.6 p.r.n. pain. Klor-Con 10 daily. Xarelto 10 daily for the next month or until ambulatory and trazodone 50 at bedtime. DISCHARGE CONDITION: Stable. She will be going to [facility] to complete her rehab. TIME SPENT: 35 minute discharge. cc: MD Wilson Rojas MD
[2017-04-29 15:51] VITALS: BP 155/73
== END 2017-04-29 16:31 ==
LOC: SUPCPDRO → ED 12:05 → 4N 15:21 → SUATTDRO 15:21 → 4N 04-23 10:17
PROVIDERS: ATTEND Internal Medicine

== ENCOUNTER 2017-06-11 06:26 | Inpatient (IN) ==
[2017-06-11] MEDS ORDERED: TYLENOL ONE (06:37)
[2017-06-11] MEDS ORDERED: NS 1,000 ML IV ONE ×2 (06:44→14:05)
[2017-06-11] MEDS ORDERED: TYLENOL PR ONE (06:51)
[2017-06-11 07:02] LABS: BLOOD TYPE ARTERIAL; DRAW SITE R RADIAL; METHB 1.5 % (0.0-1.5); O2(CT) 18.4 mL/dL (15.0-23.0); PCO2(98.6) 44 mmHg (35-45); PO2(98.6) 88 mmHg (60-100); SAMPLE BLOOD; THB 13.7 g/dL (11.5-17.4); pH(98.6) 7.49 (7.35-7.45)
[2017-06-11 07:10] LABS: MANUAL DIFF NEEDED? NO
[2017-06-11 07:12] LABS: MODALITY CANNULA
[2017-06-11 07:13] LABS: ALLEN TEST YES
[2017-06-11 07:16] LABS: BASO% 0.2 % (0.0-0.8); EOS# 0.06 X1000 (0.0-0.7); EOS% 0.3 % (0.0-10.0); HEMATOCRIT 39.3 % (37.0-47.0); HEMOGLOBIN 12.8 g/dL (12.0-16.0); IMM GRAN% 4.8 % (0.0-0.5); LYMPH# 1.54 X1000 (1.2-3.4); LYMPH% 8.3 % (20.5-51.1); MCH 30.5 PG (27-31); MCHC 32.6 g/dL (33-37); MCV 93.8 FL (81-99); MONO# 2.85 X1000 (0.11-0.59); MONO% 15.3 % (1.7-9.3); MPV 10.4 FL (7.4-10.4); NEUT% 71.1 % (42.2-75.2); PLT 236 X1000 (130-400); RBC 4.19 XMIL (4.2-5.4)
--- NOTE | 2017-06-11 07:16 | EKG Report ---
Test Performed on : 06/11/2017 06:41:46 AM Test Reason : Stroke like symptoms Blood Pressure : / mmHG Vent. Rate : 090 BPM Atrial Rate : 090 BPM P-R Int : 148 ms QRS Dur : 122 ms QT Int : 384 ms P-R-T Axes : 040 012 021 degrees QTc Int : 469 ms Normal sinus rhythm. Right bundle branch block Abnormal ECG No previous ECGs available Unconfirmed Result
[2017-06-11 07:33] LABS: INR 1.19 (0.86-1.15); PROTIME 16.1 Seconds (12.1-15.5); PTT PL 23.6 Seconds (22.6-43.9)
[2017-06-11 07:37] LABS: ALBUMIN 3.4 g/dL (3.5-5.0); CALCIUM 8.7 mg/dL (8.8-10.2); MAGNESIUM 2.2 mg/dL (1.5-2.7); TOTAL BILIRUBIN 0.4 mg/dL (0.20-1.00); TOTAL PROTEIN 7.7 g/dL (6.3-8.3)
[2017-06-11 07:46] LABS: UR AMPHETAMINES QUAL NONE DETECTED (NONE DETECT); UR BARBITUATES QUAL NONE DETECTED (NONE DETECT); UR BENZODIAZEPIN QUAL NONE DETECTED (NONE DETECT); UR CANNABINOIDS QUAL NONE DETECTED (NONE DETECT); UR COCAINE QUAL NONE DETECTED (NONE DETECT); UR MDMA QUAL NONE DETECTED (NONE DETECT); UR METHADONE QUAL NONE DETECTED (NONE DETECT); UR METHAMPHETAMINE QUAL NONE DETECTED (NONE DETECT); UR OPIATES QUAL PRESUMPTIVE POSITIVE (NONE DETECT); UR OXYCODONE QUAL PRESUMPTIVE POSITIVE (NONE DETECT); UR PCP QUAL NONE DETECTED (NONE DETECT); UR TCA QUAL NONE DETECTED (NONE DETECT)
[2017-06-11 07:48] LABS: POTASSIUM 2.6 mmol/L (3.5-5.1)
[2017-06-11 07:49] LABS: BILIRUBIN URINE NEGATIVE (NEGATIVE); BLOOD URINE TRACE (NEGATIVE); CLARITY CLEAR (CLEAR); COLOR YELLOW; GLUCOSE URINE NEGATIVE (NEGATIVE); LEUKOCYTES URINE 2+ (NEGATIVE); NITRITE URINE POSITIVE (NEGATIVE); PROTEIN URINE TRACE mg/dL (NEGATIVE); SP GRAVITY URINE 1.005; UROBILINOGEN URINE NORMAL
--- NOTE | 2017-06-11 07:52 | Diag Imaging Result Doc PS360 ---
EXAM: CHEST-1 VIEW INDICATION: stroke like symptoms TECHNIQUE: One view COMPARISON: 04/22/2017 FINDINGS: The right chest port is in stable position. The lungs are grossly clear. There is no discrete pleural fluid collection or pneumothorax. The cardiomediastinal silhouette and central vasculature are grossly unremarkable. IMPRESSION: No evidence of acute pathology by plain radiograph. Stable chest. Electronically signed by Pramod Minor 06/11/2017 7:49 AM
--- NOTE | 2017-06-11 07:56 | Diag Imaging Result Doc PS360 ---
EXAM: CT HEAD W/O CONTRAST TECHNIQUE: Dose reduction protocol was used. INDICATION: stroke like symptoms COMPARISON: None. FINDINGS: There is encephalomalacia in the periventricular white matter on the left extending into the basal ganglion and insular region. There is no definite acute infarct given the limited sensitivity of CT versus MRI. There is no discrete intracranial mass, mass effect, or intracranial hemorrhage. The surrounding soft tissues and bony structures are essentially unremarkable. IMPRESSION: Stable encephalomalacia on the left. No definite acute intracranial pathology. Electronically signed by Pramod Minor 06/11/2017 7:54 AM
[2017-06-11 07:59] LABS: URINE CULTURE PL NEEDED? YES; URINE EPITHELIAL CELLS <10 /HPF (<10); URINE RBC <10 /HPF (<10); URINE SOURCE CATH
--- NOTE | 2017-06-11 08:03 | Diag Imaging Result Doc PS360 ---
EXAM: CT ABDOMEN/PELVIS W/O CONTRAST INDICATION: Abd pain TECHNIQUE: COMPARISON: None. FINDINGS: There are increased linear markings and groundglass opacities at both lung bases likely representing atelectasis and/or mild fibrosis. There has been a previous cholecystectomy. The spleen and liver are grossly unremarkable. The pancreas and adrenal glands are unremarkable. There is a low dense lesion involving the anterior aspect of the right kidney. This may represent a cyst containing proteinaceous debris. Follow-up with a contrast-enhanced CT is recommended if not contraindicated. Otherwise, at least a follow-up renal ultrasound is recommended. It measures approximately 4.0 x 2.5 cm axially. There is a duplicated left renal collecting system. There are several nonobstructing intrarenal stones on the right. There is mild prominence of the right renal collecting system as compared to the left. However, no discrete obstructing stone is identified. There is a Betancourt catheter in the urinary bladder and the bladder is nondistended. There is a rectal fecal impaction. The diameter of the impacted rectum measures up to 9.7 cm. The appendix is unremarkable. There is no obstructive bowel pattern. There appears to have been a previous hysterectomy. IMPRESSION: 1.Rectal fecal impaction. 2.Low dense lesion involving the anterior aspect of the right kidney. Please see above discussion. 3.Right nephrolithiasis and mild prominence of the right renal collecting system. However, no obstructing stone is identified. 4.Other incidental/nonacute findings detailed above. Electronically signed by Pramod Minor 06/11/2017 8:01 AM
[2017-06-11] MEDS ORDERED: POTASSIUM CHLORIDE 40 MEQ/SWI 40 MEQ/100 ML IVPB IV ONE (09:58)
[2017-06-11] MEDS ORDERED: ROCEPHIN 2 GM/NS 2 GM/50 ML IVPB IV ONE (09:58)
--- NOTE | 2017-06-11 10:43 | PROVIDER DOCUMENTATION ---
This chart was entered by Du Crawford Scribe, acting as scribe for Tiff Bermudez MD. HPI-Neurological Disorder - General Chief Complaint: Stroke-Like Symptoms Stated Complaint: ams Time Seen by Provider: 06/11/17 06:35 Source: EMS, fdc records Allergies/Adverse Reactions: Patient Allergies Allergy/AdvReac Type Severity Reaction Status Date / Time codeine [Codeine] Allergy Unknown Unknown Unverified 12/17/12 09:36 tuberculin, purified protein Allergy Unknown Verified 12/22/12 09:11 deriva Home Medications: Home Medication List Medication Instructions Recorded Confirmed Last Taken Type Baclofen 10 mg PO TID 04/04/13 06/11/17 06/10/17 History Bisacodyl [Dulcolax] 10 mg TX PRN PRN 04/04/13 06/11/17 05/26/17 History Calcium Carbonate [Calcarb 600] 600 mg PO BID 04/04/13 06/11/17 06/10/17 History Fluticasone 50 Mcg Nasal [place] 1 spray ROMANA DAILY 04/04/13 06/11/17 06/10/17 History [Flonase] Furosemide [Lasix] 40 mg PO DAILY 04/04/13 06/11/17 06/10/17 History Gabapentin [Neurontin] 400 mg PO TID 04/04/13 06/11/17 06/10/17 History Loratadine [Claritin] 10 mg PO DAILY 04/04/13 06/11/17 06/10/17 History Multivits,Th W-Fe,Other Min 1 each PO DAILY 04/04/13 06/11/17 04/22/17 08:30 History [Therapeutic M] Potassium Chloride 10 meq PO DAILY 04/04/13 06/11/17 06/10/17 History Trazodone [Desyrel] 50 mg PO QHS 04/04/13 06/11/17 06/10/17 History Albuterol Sulfate [Ventolin Hfa] 1 puff INH PRN PRN 04/22/17 06/11/17 Unknown History Albuterol [Albuterol Neb] 2.5 mg INH 4XDAY PRN PRN 04/22/17 06/11/17 04/21/17 08 :00 History Aspirin 81 mg PO DAILY 04/22/17 06/11/1717 History Famotidine [Pepcid] 20 mg PO DAILY 04/22/17 06/11/17 06/11/17 History Furosemide 80 mg PO DAILY 04/22/17 06/11/17 06/10/17 History Ipratropium [place] 0.2 mg INH 4XDAY PRN PRN 04/22/17 06/11/17 04/21/17 08:00 History Linaclotide [Linzess] 1 cap PO DAILY 04/22/17 06/11/17 06/11/17 06:00 History Oxycodone HCl/Acetaminophen 1 each PO Q6H PRN #25 tablet 04/29/17 06/11/1706/10 Rx [Percocet 7.5-325 mg Tablet] Rivaroxaban [Xarelto] 10 mg PO DAILY@1730 06/11/17 06/11/17 Unknown History - History of Present Illness-Neuro Nature of Presenting Problem: patient is a 72 y/o F that presents from local [facility] for ams and weakness to left side that began around 2am but last seen normal last pm. Patient on arrival to the ER has only complaint of lower abdominal pain. family reports patient is more lethargic than normal. Severity: reports: moderate Onset/Duration: reports: unsure, this morning (0200) Timing: reports: still present, constant Context: reports: paresthesia Character of Altered Mental Status: reports: N/A New weakness or altered sensation location:: reports: LLE Cognitive Baseline: alert but disoriented Gait Baseline: walks without assistance Associated Symptoms: reports: paresthesia, sleepy. denies: headache, dizziness , neck/back pain, fatigue, nausea, slurred speech, vomiting Similar Symptoms Previously?: No Recently seen or treated by another doctor?: No Review of Systems - Adult - REVIEW OF SYSTEMS - ADULT Constitutional: denies: chills, fever Eyes: denies: decreased vision, blurred vision, double vision Ears, Nose, Mouth & Throat: denies: ear discharge, ear pain, sinus problem, throat pain, throat swelling Cardiovascular: denies: chest pain, palpitations, syncope Respiratory: denies: cough, shortness of breath, wheezing Gastrointestinal: reports: abdominal pain. denies: diarrhea, nausea, vomiting Genitourinary: denies: dysuria, frequency, hesitency Musculoskeletal: reports: no symptoms reported Integumentary: reports: no symptoms reported Neurological: reports: numbness. denies: seizure, slurred speech Psychiatric: reports: no symptoms reported Endocrine: reports: no symptoms reported Hematologic/Lymphatic: reports: no symptoms reported Allergic/Immunologic: reports: no symptoms reported All Other Systems: Reviewed and Negative Past History - Adult - PAST MEDICAL HISTORY-ADULT Review of Records: reports: Old Records Reviewed, Nursing Assessment Review, Medications Reviewed Respiratory: reports: COPD Musculoskeletal: reports: arthritis Neurological: reports: CVA, stroke deficits (right sided) - PRIOR SURGERIES/PROCEDURES Surgical/Procedure History: reports: reviewed, not pertinent - IMMUNIZATION STATUS Childhood Immunizations: See Nurse Assessment Flu Vaccine: See Nurse Assessment - FAMILY HISTORY Family History: reviewed, not pertinent - SOCIAL HISTORY Smoking: quit greater than 1 year, cigarettes Living Situation: family Physical Exam- Neurological - Physical Exam-Neuro Initial Vital Signs Reviewed: Yes General Appearance: alert, no apparent distress Eye Exam: bilateral eye: normal inspection, PERRL HENMT: normocephalic/atraumatic, moist mucous membranes, normal ENT inspection Head Injury: no evidence of injury. negative: lacerations, raccoon eyes Neck: full range of motion, normal inspection Respiratory: lungs clear, normal breath sounds, no respiratory distress, no accessory muscle use Cardiovascular: regular rate, rhythm, no edema, no murmur Abdominal Exam: normal bowel sounds, soft, no organomegaly, no pulsatile mass, tenderness (suprapubic) Extremity: no pedal edema, no calf tenderness, normal capillary refill pharmacy benefit manager Exam: normal hearing, normal speech, PERRL Motor/Sensory: no pronator drift, weak motor strength LLE Neurologic: motor weakness. negative: aphasia, sensory deficit Integumentary: normal color, warm/dry Psych/Mental Status: normal mood/affect, normal thought content, normal thought process, oriented x 3 - Glascow Coma Scale Best Eye Response: (4) open spontaneously Best Verbal Response: (5) oriented Best Motor Response: (6) obeys commands Total Glascow Score: 15 Progress - PLAN OF CARE/RESULTS Progress/Plan/Lab Results: Vital Signs - 8 hr 06/11/17 06:27 06/11/17 07:18 Temperature 100.3 F H Pulse Rate 98 H Respiratory Rate 16 Blood Pressure 145/93 O2 Sat by Pulse Oximetry 96 Laboratory Results - last 24 hr 06/11/17 06/11/17 06/11/17 06:45 06:58 06:58 WBC 18.58 H RBC 4.19 L Hgb 12.8 Hct 39.3 MCV 93.8 MCH 30.5 MCHC 32.6 L RDW Std Deviation 14.5 Plt Count 236 MPV 10.4 Immature Gran % (Auto) 4.8 H Neut % (Auto) 71.1 Lymph % (Auto) 8.3 L [place] % (Auto) 15.3 H Eos % (Auto) 0.3 Baso % (Auto) 0.2 Immature Gran # (Auto) 0.90 H Neut # (Auto) 13.20 H Lymph # (Auto) 1.54 [place] # (Auto) 2.85 H Eos # (Auto) 0.06 Baso # (Auto) 0.03 PT INR APTT (Factor Assay) Specimen Type ARTERIAL Sample Site R RADIAL pH 7.49 H pCO2 44 pO2 88 HCO3 31.9 H Base Excess 9.0 H Oxyhemoglobin 95.2 ABG O2 Sat (Calculated) 18.4 ABG O2 Saturation 99.0 ABG Carboxyhemoglobin 2.30 ABG Methemoglobin 1.5 Baron Test YES A-a O2 Difference 57.0 Total Hemoglobin 13.7 Lactate 1.00 Liter Flow 2.0 Blood Gas Modality CANNULA FiO2 % 28.0 Sodium 146 H Potassium 2.6 L Chloride 103 Carbon Dioxide 29 Anion Gap 14 BUN 31 H Creatinine 1.6 H Estimated GFR/1.73 m2 32 BUN/Creatinine Ratio 19 Glucose 146 H Calculated Osmolality 300 Calcium 8.7 L Magnesium 2.2 Total Bilirubin 0.40 AST 80 H ALT 57 H Alkaline Phosphatase 111 H Troponin T [id number] Pept Total Protein 7.7 Albumin 3.4 L Globulin 4.0 Albumin/Globulin Ratio 1.0 Lipase 73 H Plasma Lactate Urine Source Urine Color Urine Clarity Urine Turbidity Urine pH Ur Specific [place] Urine Protein Ur Glucose (Stick) Urine Ketones Ur Ketones (Stick) Urine Blood Urine Nitrite Urine Bilirubin Urine Urobilinogen Urobilinogen Dipstick Urine Leukocytes Urine WBC (Auto) Urine RBC (Auto) U Epithel Cells (Auto) Urine Bacteria (Auto) Urine Microscopic RBC Urine WBC Urine Microscopic WBC Ur Epithelial Cells Urine Bacteria Urine Glucose Urine Opiates Screen Ur Oxycodone Screen Urine Methadone Screen Ur Barbituates Screen Ur Tricyclics Screen Ur Phencyclidine Scrn Ur Amphetamines Screen U Methamphetamines Scrn Urine MDMA Screen U Benzodiazepines Scrn Urine Cocaine Screen U Cannabinoids Screen 06/11/17 06/11/17 06/11/17 06:58 06:58 07:03 WBC RBC Hgb Hct MCV MCH MCHC RDW Std Deviation Plt Count MPV Immature Gran % (Auto) Neut % (Auto) Lymph % (Auto) [place] % (Auto) Eos % (Auto) Baso % (Auto) Immature Gran # (Auto) Neut # (Auto) Lymph # (Auto) [place] # (Auto) Eos # (Auto) Baso # (Auto) PT 16.1 H INR 1.19 H APTT (Factor Assay) 23.6 Specimen Type Sample Site pH pCO2 pO2 HCO3 Base Excess Oxyhemoglobin ABG O2 Sat (Calculated) ABG O2 Saturation ABG Carboxyhemoglobin ABG Methemoglobin Baron Test A-a O2 Difference Total Hemoglobin Lactate Liter Flow Blood Gas Modality FiO2 % Sodium Potassium Chloride Carbon Dioxide Anion Gap BUN Creatinine Estimated GFR/1.73 m2 BUN/Creatinine Ratio Glucose Calculated Osmolality Calcium Magnesium Total Bilirubin AST ALT Alkaline Phosphatase Troponin T < 0.010 [id number] Pept 137 Total Protein Albumin Globulin Albumin/Globulin Ratio Lipase Plasma Lactate Urine Source Urine Color Urine Clarity Urine Turbidity Urine pH Ur Specific [place] Urine Protein Ur Glucose (Stick) Urine Ketones Ur Ketones (Stick) Urine Blood Urine Nitrite Urine Bilirubin Urine Urobilinogen Urobilinogen Dipstick Urine Leukocytes Urine WBC (Auto) Urine RBC (Auto) U Epithel Cells (Auto) Urine Bacteria (Auto) Urine Microscopic RBC Urine WBC Urine Microscopic WBC Ur Epithelial Cells Urine Bacteria Urine Glucose Urine Opiates Screen Ur Oxycodone Screen Urine Methadone Screen Ur Barbituates Screen Ur Tricyclics Screen Ur Phencyclidine Scrn Ur Amphetamines Screen U Methamphetamines Scrn Urine MDMA Screen U Benzodiazepines Scrn Urine Cocaine Screen U Cannabinoids Screen 06/11/17 06/11/17 06/11/17 07:10 07:16 08:30 WBC RBC Hgb Hct MCV MCH MCHC RDW Std Deviation Plt Count MPV Immature Gran % (Auto) Neut % (Auto) Lymph % (Auto) [place] % (Auto) Eos % (Auto) Baso % (Auto) Immature Gran # (Auto) Neut # (Auto) Lymph # (Auto) [place] # (Auto) Eos # (Auto) Baso # (Auto) PT INR APTT (Factor Assay) Specimen Type Sample Site pH pCO2 pO2 HCO3 Base Excess Oxyhemoglobin ABG O2 Sat (Calculated) ABG O2 Saturation ABG Carboxyhemoglobin ABG Methemoglobin Baron Test A-a O2 Difference Total Hemoglobin Lactate Liter Flow Blood Gas Modality FiO2 % Sodium Potassium Chloride Carbon Dioxide Anion Gap BUN Creatinine Estimated GFR/1.73 m2 BUN/Creatinine Ratio Glucose Calculated Osmolality Calcium Magnesium Total Bilirubin AST ALT Alkaline Phosphatase Troponin T [id number] Pept Total Protein Albumin Globulin Albumin/Globulin Ratio Lipase Plasma Lactate 1.4 Urine Source CATH Urine Color YELLOW Urine Clarity CLEAR Urine Turbidity Cancelled Urine pH 5.0 Ur Specific [place] 1.005 Urine Protein TRACE A Ur Glucose (Stick) Cancelled Urine Ketones NEGATIVE Ur Ketones (Stick) Cancelled Urine Blood TRACE Urine Nitrite POSITIVE A Urine Bilirubin NEGATIVE Urine Urobilinogen NORMAL Urobilinogen Dipstick Cancelled Urine Leukocytes Cancelled Urine WBC (Auto) Cancelled Urine RBC (Auto) Cancelled U Epithel Cells (Auto) Cancelled Urine Bacteria (Auto) Cancelled Urine Microscopic RBC <10 Urine WBC 2+ A Urine Microscopic WBC 10-20 A Ur Epithelial Cells <10 Urine Bacteria 2+ Urine Glucose NEGATIVE Urine Opiates Screen PRESUMPTIVE POSITIVE A Ur Oxycodone Screen PRESUMPTIVE POSITIVE A Urine Methadone Screen NONE DETECTED Ur Barbituates Screen NONE DETECTED Ur Tricyclics Screen NONE DETECTED Ur Phencyclidine Scrn NONE DETECTED Ur Amphetamines Screen NONE DETECTED U Methamphetamines Scrn NONE DETECTED Urine MDMA Screen NONE DETECTED U Benzodiazepines Scrn NONE DETECTED Urine Cocaine Screen NONE DETECTED U Cannabinoids Screen NONE DETECTED Orders Category Date Time Status Cardiac Monitoring DIRECTED Care 06/11/17 06:36 Active Finger Stick Blood Sugar (ED) DIRECTED Care 06/11/17 06:36 Active [place] Cath Insertion ORDERED Care 06/11/17 06:44 Active Misc. NRSG Communication Order DIRECTED Care 06/11/17 06:36 Active Saline Loc NOW Care 06/11/17 06:36 Active CHEST-1 VIEW [RAD] Stat Exams 06/11/17 06:[address] ABDOMEN/PELVIS W/O CONTRAST [CT] Stat Exams 06/11/17 06:[address] HEAD W/O CONTRAST [CT] Stat Exams 06/11/17 06:36 Completed ABG [RESP] Routine Lab 06/11/17 06:45 Completed BLOOD CULTURE [BLDCUL] Stat Lab 06/11/17 07:14 Ordered CBC WITH ELECTRONIC DIFF [HEME] Stat Lab 06/11/17 06:58 Completed COMPREHENSIVE METABOLIC PANEL [CHEM] Stat Lab 06/11/17 06:58 Completed LACTATE, PLASMA [CHEM] Stat Lab 06/11/17 08:30 Completed LIPASE [CHEM] Stat Lab 06/11/17 06:58 Completed MAGNESIUM [CHEM] Stat Lab 06/11/17 06:58 Completed PRO B-NATRIURETIC PEPTIDE Stat Lab 06/11/17 07:03 Completed [address]IME WITH INR PL [COAG] Routine Lab 06/11/17 06:[address] [COAG] Routine Lab 06/11/17 06:58 Completed TROPONIN T Stat Lab 06/11/17 06:[address] W/POSS RFLX CULT [URINALYSIS] Stat Lab 06/11/17 07:10 Completed URINE CULTURE [RM] Routine Lab 06/11/17 07:59 Re[address] UR[address] DRUG SCREEN PL Stat Lab 06/11/17 07:16 Completed 0.9% Sodium Chloride Inj [Ns] 1,000 ml Med 06/11/17 06:44 Active IV 150 mls/hr Acetaminophen [Tylenol] Med 06/11/17 06:37 Discontinued 650 mg .ROUTE .STK-MED ONE Acetaminophen [Tylenol] Med 06/11/17 06:51 Discontinued 650 mg TX NOW ONE CefTRIAXONE 2 GM/NS [Rocephin 2 gm/Ns] Med 06/11/17 09:58 Discontinued 2 gm in 50 ml IV NOW Potassium Chloride 40 Meq/Swi Med 06/11/17 09:58 Active 40 meq in 100 ml IV ONCE EKG [EKG] Stat Ther 06/11/17 06:36 Draft Result Diagrams: 06/11/17 06:58 06/11/17 06:58 - EKG 1 Time of EKG reading by physician:: 06:41 EKG Read and Signed by:: Tiff Bermudez EKG Interpretation (*Must complete 3 of following elements*): Abnormal Rate: 90 Rhythm: NSR [place]: normal QRS: RBB TX Interval: normal ST Wave: normal - CT/MRI 1 CT Study: Head Impression: Normal - CONSULTS/PCP/HOSPITALIST Notification #1 *Consult/PCP/Hospitalist*: Dr. Vaughn Time Discussed: 10:42 Consult Disposition: Will see in ED, Admit Departure - Departure Date of Disposition Decision: 06/11/17 Time of Disposition Decision: 10:39 DIAGNOSIS: Altered mental status, UTI (urinary tract infection), Hypokalemia Disposition: ADMITTED INPATIENT 09 Certified Medical Emergency: Emergent Condition: Stable Referrals and Follow-Ups: None,PCP [Primary Care Provider] - - Critical Care Note This patient required my direct & personal management of CC.: No Attestation - Physician/ RUBIN Attestation Patient care was provided by Advanced Practice Provider:: No The physician spent face to face time with patient:: Yes Advanced Practice Provider documentation review:: Supervising physician onsite and consulted in the evaluation and care of this patient. The physician did have a face to face encounter with the patient. This chart was documented by the indicated scribe, (Du Crawford, Scribe) and accurately reflects the services I performed and decisions made by me, Tiff Bermudez MD, as attested by the provider's signature.
[2017-06-11] MEDS ORDERED: FLEET ENEMA PR ONE ×2 (13:53→14:05)
[2017-06-11] MEDS ORDERED: DULCOLAX PR PRN (14:05)
[2017-06-11] MEDS ORDERED: ATROVENT NEB INH PRN (14:05)
[2017-06-11] MEDS ORDERED: ALBUTEROL NEB INH PRN (14:05)
[2017-06-11] MEDS ORDERED: VENTOLIN HFA INH PRN (14:05)
--- NOTE | 2017-06-11 15:19 | HISTORY AND PHYSICAL ---
CHIEF COMPLAINT: Altered mental status and weakness. HISTORY OF PRESENTING ILLNESS: This is a 72-year-old, female, who presents from [facility] to [facility] ER, with complaints of altered mental status and left-sided weakness that began around 2 a.m. States that she was last seen normal last night. Her workup in the ER showed a chest x-ray that showed no evidence of acute pathology, stable chest. Head CT showed stable encephalomalacia on the left. No definite acute intracranial pathology. CT of the abdomen and pelvis showed a rectal fecal impaction. Her laboratory data showed a white count of 18.58. Sodium of 146 potassium 2.6, BUN of 31, with a creatinine of 1.6. AST was 80, ALT 57, alkaline phosphatase 111. Urinalysis showed positive nitrites, 2+ white blood cells, 2+ bacteria, and her urine drug screen was positive for opiates and oxycodone, so she is being admitted to the medical unit at [facility] for further evaluation and treatment. PAST MEDICAL HISTORY: CVA with right-sided hemiplegia, osteoarthritis, insomnia , COPD, GERD, dysphagia in the pharyngeal/esophageal phase. PAST SURGICAL HISTORY: Right ankle surgery, right knee surgery, a partial hysterectomy, and a port placement secondary to difficulty obtaining IV's. FAMILY HISTORY: Noncontributory. SOCIAL HISTORY: She currently resides at [facility]. Denies any tobacco, alcohol, or illicit drug use. ALLERGIES: Codeine, tuberculin and purified protein derivatives. HOME MEDICATIONS: We will hold the following: Baclofen 10 mg p.o. t.i.d., Lasix 80 mg p.o. daily and 40 mg p.o. daily, potassium 10 mEq p.o. daily. We will continue her albuterol nebs 4 times daily p.r.n., Ventolin inhaler p.r.n. wheezing, aspirin 81 mg p.o. daily, Dulcolax 10 mg per rectal p.r.n., calcium 600 mg p.o. b.i.d., Pepcid 20 mg p.o. daily, Flonase 1 spray nasally daily, Neurontin 400 mg p.o. t.i.d., ipratropium bromide 0.2 mg inhalation 4 times daily p.r.n., Linzess 145 mcg p.o. daily, Claritin 10 mg p.o. daily, multivitamin 1 p.o. daily, oxycodone 7.5 one p.o. q.6 hours, Xarelto 10 mg p.o. daily and trazodone 50 mg p.o. at bedtime. LABORATORY DATA: White blood cell count of 18.58, hemoglobin 12.8, hematocrit 39.3, platelets 236,000. PT and INR of 16.1 and 1.19. ABG with a pH of 7.49, pCO2 of 44, PO2 88, bicarb 31.9. Sodium 146, potassium 2.6, chloride 103, CO2 of 29, BUN of 31, creatinine 1.6, glucose 146. Magnesium of 2.2. AST of 80, ALT of 57, alkaline phosphatase of 111. Troponin less than 0.010, with a proBNP of 137, lipase of 73, plasma lactate of 1.4. Urinalysis with positive nitrites, 2+ white blood cells, and 2+ bacteria. Urine drug screen was presumptive-positive for opiates and oxycodone, otherwise negative. Chest x-ray showed no acute disease. CT of the head showed stable encephalomalacia on the left. No definite acute intracranial pathology. CT of the abdomen and pelvis showed rectal fecal impaction, right nephrolithiasis and mild prominence of the right renal collecting system; however, no obstructing stone identified. REVIEW OF SYSTEMS: Denies any fever, chills, blurred vision, dizziness. She complains of weakness that is generalized. Positive for constipation. Denied chest pain, coughing, or shortness of breath. PHYSICAL EXAMINATION: VITAL SIGNS: On arrival, she had a temperature of a 100.3 degrees, pulse 98, respirations 16, blood pressure 145/93, saturating 96% on 2 L via nasal cannula. GENERAL: This is a 72-year-old, female, who is lying in the bed. HEENT: Normocephalic and atraumatic. Pupils are equal, round, and reactive to light. Extraocular movements are intact. Oropharynx and nares are clear. NECK: Supple. LUNGS: Clear to auscultation bilaterally, with equal lung expansion and chest wall movement. HEART: Regular rate and rhythm. No murmurs, rubs, or gallops. ABDOMEN: Soft, nontender, nondistended. Bowel sounds are present x4 quadrants. EXTREMITIES: No clubbing, cyanosis, or edema. The patient is noted to have weak hand grasp bilaterally. NEUROLOGICAL: Unable to obtain all, but she is noted, from a previous CVA, to have a right hemiplegia. ASSESSMENT: 1. Altered mental status. 2. Leukocytosis. 3. Hypokalemia. 4. Acute kidney injury. 5. Elevated liver function tests. 6. Urinary tract infection. PLAN: She is being admitted to the medical unit at [facility], placed on telemetry. We will obtain an abdominal ultrasound for her elevated LFTs. She will be placed on normal saline at 100 mL an hour. Will give Fleets enema x2 now. Place on Rocephin 1 g IV q.24. Urine culture is pending. We will check urine, creatinine, osmolality and sodium. Recheck a CBC and CMP in the a.m., and continue home medications as previously identified. We will also place on MiraLAX 17 g p.o. daily. After positive bowel movements, we will recheck a flat and upright, most likely in the a.m., but we will wait and see that she has a positive bowel movement first. Dictated by MANNIE Dean for Ramiro Vaughn MD cc: MANNIE Dean MD pt examined, agree with above APENOT MTDD
[2017-06-11] MEDS: MIRALAX PO SCH (15:42)
[2017-06-11] MEDS: XARELTO PO SCH (16:37)
[2017-06-11] MEDS: NEURONTIN PO SCH (16:37)
[2017-06-11] MEDS ORDERED: BLISTEX MEDICATED BERRY LIP BALM TOP PRN (17:06)
[2017-06-11] MEDS: NS 1,000 ML IV SCH (18:13)
[2017-06-11] MEDS: PERCOCET-5 PO PRN (21:11)
[2017-06-11] MEDS: CALTRATE 600 PO SCH (21:11)
[2017-06-11] MEDS: DESYREL PO SCH (21:16)
[2017-06-12] MEDS: TYLENOL PO PRN ×2 (00:47→15:55)
[2017-06-12] MEDS: DUONEB (A & A) INH PRN ×2 (03:19→07:40)
[2017-06-12] MEDS: NS 1,000 ML IV SCH ×2 (05:19→14:25)
[2017-06-12] MEDS: LINZESS PO SCH (06:04)
[2017-06-12 07:12] LABS: BASO% 0.2 % (0.0-0.8); EOS# 0.07 X1000 (0.0-0.7); EOS% 0.4 % (0.0-10.0); HEMATOCRIT 35.1 % (37.0-47.0); HEMOGLOBIN 10.9 g/dL (12.0-16.0); IMM GRAN# 1.16 X1000 (0.0-0.04); IMM GRAN% 6.3 % (0.0-0.5); LYMPH# 1.84 X1000 (1.2-3.4); LYMPH% 9.9 % (20.5-51.1); MANUAL DIFF NEEDED? YES; MCH 29.9 PG (27-31); MCHC 31.1 g/dL (33-37); MCV 96.4 FL (81-99); MONO% 14.6 % (1.7-9.3); MPV 10.7 FL (7.4-10.4); NEUT% 68.6 % (42.2-75.2); PLT 191 X1000 (130-400); RBC 3.64 XMIL (4.2-5.4)
[2017-06-12 07:41] LABS: AGAP 15; ALBUMIN 2.5 g/dL (3.5-5.0); ALKALINE PHOSPHATASE 96 U/L (32-104); BUN 17 mg/dL (8-22); CALCIUM 8.3 mg/dL (8.8-10.2); CHLORIDE 108 mmol/L (98-107); COSMO 294; GOT 62 U/L (10-30); GPT 44 U/L (10-36); SODIUM 147 mmol/L (136-145); TCO2 25 mmol/L (25-35); TOTAL PROTEIN 7.2 g/dL (6.3-8.3)
[2017-06-12] MEDS: FLONASE NAS SCH (08:47)
[2017-06-12] MEDS: CALTRATE 600 PO SCH ×2 (08:48→20:52)
[2017-06-12] MEDS: CLARITIN PO SCH (08:48)
[2017-06-12] MEDS: NEURONTIN PO SCH ×3 (08:48→17:22)
[2017-06-12] MEDS: PEPCID PO SCH (08:48)
[2017-06-12] MEDS: ASPIRIN PO SCH (08:48)
[2017-06-12] MEDS: MIRALAX PO SCH (08:48)
[2017-06-12] MEDS: THERA M PLUS PO SCH (08:49)
[2017-06-12 09:00] LABS: BANDS 2 % (0-1); EOS 1 % (1-10); LYMPHS 5 % (21-51); METAMYELOCYTES 1 %; MONO 5 % (1-9)
--- NOTE | 2017-06-12 09:32 | Diag Imaging Result Doc PS360 ---
US ABDOMEN-COMPLETE - 06/12/2017 INDICATION: elevated lft TECHNIQUE: Blackburn scale, color Doppler, and duplex evaluation of the abdomen was performed. COMPARISON: CT scan 06/11/2017 FINDINGS: The liver appears normal in size and echotexture. No focal masses are appreciated. The IVC and aorta appear normal. The pancreas is obscured by bowel gas artifact. The gallbladder is surgically absent. The common bile duct measures 4 mm. The portal vein is patent with hepatopetal flow. Spleen is unremarkable. The right kidney contains two simple appearing cyst. Cyst #1 measures 2.5 x 2.4 x 2.6 cm. Cyst #2 measures 3.6 x 2.7 x 3.4 cm. No soft tissue components are appreciated. There is no vascular flow. There is no hydronephrosis. IMPRESSION: Two simple cysts right kidney. Status post cholecystectomy. Electronically signed by Chrystal Trammell 06/12/2017 9:30 AM
[2017-06-12] MEDS: ROCEPHIN 1 GM/NS 1 GM/50 ML IVPB IV SCH (10:41)
[2017-06-12] MEDS: LACTULOSE PO SCH ×2 (11:56→20:52)
[2017-06-12] MEDS: D5 1/2 NS 1,000 ML IV SCH (15:55)
--- NOTE | 2017-06-12 16:31 | PROGRESS NOTE ---
DATE: 06/12/2017 SUBJECTIVE: Patient has no focal complaints. She is kind of pleasantly well she is confused, maybe not pleasantly confused. She is complaining of just kind of pain all over. OBJECTIVE: Vital signs: Blood pressure 166/71, heart rate of 98, respiratory rate 18, temperature is a 100.8 degrees. She has pretty much had a temperature all night. Her white count is still 18,000. Cardiovascular: Regular rate and rhythm. Pulmonary: Bilateral breath sounds. Clear to auscultation. GI: Soft, nontender, nondistended. Bowel sounds are positive. Extremities: No clubbing or cyanosis. Lymphatics: No peripheral edema. Neurological: Nonfocal except her persistent right-sided weakness which is her baseline. OBJECTIVE DATA: White count is 18 with 86% segs, 2% bands, hemoglobin and hematocrit 10 and 35, platelets 191,000. Sodium 147, potassium 3, AST and ALT of 62 and 44. PROBLEM LIST: 1. Urinary tract infection. We will continue Rocephin. She seems to be doing okay but she has persistent fevers, I may cover her with vancomycin it is a small chance this could be enterococcus since she has GPCs in her urine or we may considers Zyvox, I think will do Zyvox. 2. She has persistent fevers. I think I am going to go ahead and progress to a CT of her abdomen and pelvis with contrast per Radiology recommendations because she has persistent fever, persistent leukocytosis and she has extension of her right renal collecting system although there was no evidence of ureterolithiasis. 3. Hypernatremia. She is probably little bit dehydrated so we will give her low tenacity IV fluids and follow clinically. 4. Hypokalemia. We will supplement. 5. Acute kidney injury. This is improved with hydration. We will continue hydration and follow. 6. Rectal impaction, fecal impaction. Appears to be improved. Will continue aggressive bowel regimen. DISPOSITION: Pending her multiple clinical issues. We will continue to follow. cc: Ramiro Vaughn MD
[2017-06-12] MEDS: ZYVOX 600 MG/D5W 600 MG/300 ML IVPB IV SCH (17:20)
[2017-06-12] MEDS: XARELTO PO SCH (17:26)
--- NOTE | 2017-06-12 20:50 | Diag Imaging Result Doc PS360 ---
EXAM: CT ABD/PELVIS W/PO AND IV CON INDICATION: FEVER, PAIN TECHNIQUE: Dose reduction protocol was used. COMPARISON: Unenhanced CT dated 06/11/2017 FINDINGS: There are groundglass opacities and linear densities in the lung bases seen on the previous study are stable. The low dense lesion at the anterior aspect of the right kidney seen on the previous study is again identified. It appears to represent a cyst with a fairly thin internal septation. Its density is slightly higher than that of simple fluid. No definite enhancement is appreciated. This can be classified as a Bosniak type IIF cyst. Surveillance with at least renal ultrasound is recommended. There are a few other tiny simple appearing cysts bilaterally. The rectal fecal impaction seen on the recent prior study is unchanged. A Betancourt catheter is in the urinary bladder and the bladder remains decompressed. There is interval stability of the liver, spleen, adrenal glands, pancreas, and the remainder of the GI tract as compared to the recent previous study with no abnormal enhancement appreciated. The mild prominence of the right renal collecting system seen on the previous study is stable. It is probably chronic. 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 2.Stable rectal fecal impaction. 3.Otherwise, the abdomen and pelvis are grossly stable as compared to the very recent unenhanced study. Electronically signed by Pramod Minor 06/12/2017 8:47 PM
[2017-06-12] MEDS: DESYREL PO SCH (20:52)
[2017-06-12] MEDS: PERCOCET-5 PO PRN (22:59)
[2017-06-13] MEDS: ZYVOX 600 MG/D5W 600 MG/300 ML IVPB IV SCH ×2 (04:25→18:31)
[2017-06-13 05:22] LABS: HEMATOCRIT 32.8 % (37.0-47.0); HEMOGLOBIN 10.4 g/dL (12.0-16.0); MCH 29.5 PG (27-31); MCHC 31.7 g/dL (33-37); MCV 93.2 FL (81-99); MPV 10.9 FL (7.4-10.4); RBC 3.52 XMIL (4.2-5.4)
[2017-06-13] MEDS: DUONEB (A & A) INH PRN ×2 (05:51→20:11)
[2017-06-13 06:14] LABS: AGAP 10; BUN 9 mg/dL (8-22); CALCIUM 8.3 mg/dL (8.8-10.2); CHLORIDE 104 mmol/L (98-107); COSMO 281; MAGNESIUM 1.5 mg/dL (1.5-2.7); POTASSIUM 2.5 mmol/L (3.5-5.1); SODIUM 140 mmol/L (136-145); TCO2 26 mmol/L (25-35)
[2017-06-13] MEDS: LINZESS PO SCH (06:16)
[2017-06-13] MEDS: PERCOCET-5 PO PRN ×2 (06:16→17:07)
[2017-06-13] MEDS ORDERED: POTASSIUM CHLORIDE 20 MEQ/SWI 20 MEQ/100 ML IVPB IV SCH (07:00)
[2017-06-13] MEDS: POTASSIUM CHLORIDE 20 MEQ/SWI 20 MEQ/100 ML IVPB IV SCH ×2 (08:14→13:41)
--- NOTE | 2017-06-13 08:40 | PROGRESS NOTE ---
DATE: 06/13/2017 SUBJECTIVE: Patient without any new complaints this morning. She is quite pleasant to talk with although she is confused. This morning she does not have any complaints of pain denies any other issues. PHYSICAL EXAM: Vital Signs: T max 100.8. T current 100.3. Pulse 96, respiratory rate 18, BP 133/86, saturation 94% on 3 L. General: Patient is awake and alert. Currently no respiratory distress. She is pleasant to talk with. Neck: Supple. CV: Regular rate. Chest: Clear. Abdomen: Soft, nondistended. No masses. Positive bowel sounds. Extremities: Moves all extremities. Neurologic: No focal changes. Skin: Warm and dry. No rashes. DIAGNOSTIC DATA: WBC is mildly elevated at 19 compared to yesterday's 18. Hemoglobin and hematocrit stable at 10 and 30. Potassium 2.5, calcium 8.3, albumin 2.5. ASSESSMENT: 1. Urinary tract infection. She currently is growing enterococcus faecalis that is sensitive to vancomycin, nitrofurantoin and ampicillin. Will continue her Rocephin and linezolid. She does appear to be improving. 2. Persistent fevers secondary to urinary tract infection. 3. Hypernatremia resolved. 4. Hypokalemia. Potassium 2.4. Will replace. 5. Hypocalcemia, corrected to normal given her albumin. 6. Moderate protein calorie malnutrition. 7. Fecal impaction. We will continue treatment with lactulose. Will do a milk and molasses enema x1 and will follow. 8. Metabolic encephalopathy. Uncertain what patient's baseline is. She certainly does appear to be baseline. cc: Dinesh Cruz MD
[2017-06-13] MEDS: ASPIRIN PO SCH (10:07)
[2017-06-13] MEDS: THERA M PLUS PO SCH (10:08)
[2017-06-13] MEDS: PEPCID PO SCH (10:08)
[2017-06-13] MEDS: NEURONTIN PO SCH ×3 (10:08→17:06)
[2017-06-13] MEDS: MIRALAX PO SCH (10:08)
[2017-06-13] MEDS: FLONASE NAS SCH (10:09)
[2017-06-13] MEDS: CLARITIN PO SCH (10:09)
[2017-06-13] MEDS: LACTULOSE PO SCH ×2 (10:09→22:11)
[2017-06-13] MEDS: CALTRATE 600 PO SCH ×2 (10:09→20:17)
[2017-06-13] MEDS ORDERED: [UNRECOGNIZED DRUG - OTHER] PR SCH (15:00)
[2017-06-13] MEDS: ROCEPHIN 1 GM/NS 1 GM/50 ML IVPB IV SCH (17:06)
[2017-06-13] MEDS: XARELTO PO SCH (17:06)
[2017-06-13] MEDS: D5 1/2 NS 1,000 ML IV SCH (18:31)
[2017-06-13] MEDS: DESYREL PO SCH (20:18)
[2017-06-14] MEDS: TYLENOL PO PRN (06:16)
[2017-06-14] MEDS: LINZESS PO SCH (06:16)
[2017-06-14] MEDS: ZYVOX 600 MG/D5W 600 MG/300 ML IVPB IV SCH (06:16)
[2017-06-14 06:38] LABS: HEMATOCRIT 34.2 % (37.0-47.0); MCH 29.6 PG (27-31); MCHC 32.2 g/dL (33-37); MCV 91.9 FL (81-99); RBC 3.72 XMIL (4.2-5.4)
[2017-06-14 06:59] LABS: AGAP 10; ALBUMIN 2.6 g/dL (3.5-5.0); ALKALINE PHOSPHATASE 94 U/L (32-104); BUN 5 mg/dL (8-22); CALCIUM 8.3 mg/dL (8.8-10.2); CHLORIDE 102 mmol/L (98-107); COSMO 278; GOT 39 U/L (10-30); GPT 34 U/L (10-36); MAGNESIUM 1.5 mg/dL (1.5-2.7); POTASSIUM 2.6 mmol/L (3.5-5.1); SODIUM 140 mmol/L (136-145); TCO2 28 mmol/L (25-35); TOTAL PROTEIN 6.3 g/dL (6.3-8.3)
[2017-06-14] MEDS: THERA M PLUS PO SCH (09:01)
[2017-06-14] MEDS: D5 1/2 NS 1,000 ML IV SCH (09:01)
[2017-06-14] MEDS: ASPIRIN PO SCH (09:01)
[2017-06-14] MEDS: PEPCID PO SCH (09:02)
[2017-06-14] MEDS: NEURONTIN PO SCH ×3 (09:02→18:04)
[2017-06-14] MEDS: MIRALAX PO SCH (09:02)
[2017-06-14] MEDS: CALTRATE 600 PO SCH ×2 (09:02→20:46)
[2017-06-14] MEDS: FLONASE NAS SCH (09:02)
[2017-06-14] MEDS: CLARITIN PO SCH (09:02)
[2017-06-14] MEDS: LACTULOSE PO SCH (09:02)
[2017-06-14] MEDS: KLOR-CON PO SCH ×2 (12:27→20:45)
[2017-06-14] MEDS: LIORESAL PO SCH ×2 (12:27→18:05)
--- NOTE | 2017-06-14 14:25 | PROGRESS NOTE ---
DATE: 06/14/2017 SUBJECTIVE: Patient without any new complaints today. States she is feeling okay. Notes that she has not been able to take pain medication. Does state that she gets out of bed occasionally. OBJECTIVE: Vital signs: Temperature 101, pulse 87, respiratory rate 18, BP 134/61, saturating 97% on 3 L. General: Patient is awake, alert. She is currently in no respiratory distress. Neck: Supple. CV: Regular rate. Chest: Clear. Abdomen: Soft. Extremities: No edema. ASSESSMENT: 1. Urinary tract infection with enterococcus faecalis sensitive to ampicillin vancomycin. 2. Gram-positive bacteremia, sensitivities still pending. 3. Fever. 4. Hypernatremia, resolved. 5. Hypokalemia. Will replace and recheck. 6. Acute kidney injury, resolved. 7. Leukocytosis, stable. PLAN: We will continue Rocephin and Zyvox until her blood cultures return. Further orders as needed. cc: Dinesh Cruz MD
[2017-06-14] MEDS: XARELTO PO SCH (18:04)
[2017-06-14] MEDS: CUBICIN 500 MG in NS 100 ML IV SCH (18:04)
--- NOTE | 2017-06-14 18:34 | CONSULTATION ---
DATE OF CONSULTATION: 06/14/2017 CONCLUSION: Patient is admitted with an altered mental status and weakness. Most likely this is secondary to a methicillin-resistant Staph aureus bacteremia and possibly an enterococcal urinary tract infection. I have just found out now that the patient does have a Port-A-Cath and therefore the Port-A-Cath is the source of the patient's bacteremia and it will have to be removed. She does not have any evidence of pneumonia. She does have some bed sores but they are not deep and only some discoloration of the skin. Her urine has an Enterococcus and obviously that is not the source of her bacteremia caused by methicillin-resistant Staph aureus. RECOMMENDATIONS: I have discontinued the current antibiotics and started the patient on daptomycin. I am using this rather than vancomycin because the patient already has an elevated creatinine of 1.6. Also I have ordered an echocardiogram to look for endocarditis. I am going to put in a surgical consultation to remove the patient's Port-A-Cath. DISCUSSION: The patient is unable provide a history. No family member was present. She was admitted to the hospital with an altered mental status and weakness. Her laboratory studies show a white count of 18,130 hemoglobin 11 and platelet count 175,000. Creatinine is 0.7. GFR is greater than 60. Liver function studies are normal. Chest x-ray shows no acute disease. CT scan of the abdomen and pelvic still as a right renal cyst and fecal impaction. REVIEW OF SYSTEMS: I was unable to obtain this from the patient. PAST MEDICAL HISTORY: Positive for stroke with right-sided hemiplegia, osteoarthritis, insomnia, COPD, gastroesophageal reflux disease, dysphagia in the pharyngeal/esophageal phase. PAST SURGICAL HISTORY: Positive for cholecystectomy, right ankle surgery, right knee surgery, hysterectomy, placement of a Port-A-Cath because of difficulty in obtaining IV. FAMILY HISTORY: Said to be noncontributory. SOCIAL HISTORY: The patient currently resides at [facility]. She does not smoke cigarettes, drink alcoholic beverages or use drugs illicitly. ALLERGIES: Are to codeine, tuberculin and tuberculin purified protein. HOME MEDICATIONS: Include baclofen, Lasix, potassium, Ventolin, aspirin, Dulcolax, calcium, Pepcid, Flonase, Neurontin, ipratropium inhalation, Linzess, Claritin, multivitamins, oxycodone, Xarelto and trazodone. PHYSICAL EXAMINATION: Vital signs: Temperature is 101 degrees, pulse is 87 respirations 18 blood pressure is 134/61. General: This is an ill-appearing elderly female. She is having chills. Head, eyes, ears, nose, and Throat: No drainage noted from the nose or ears. The patient's mouth did not have any white patches in it. Neck: No meningismus. Thorax: I was unable to feel for the patient's Port-A-Cath. Lungs: Clear to auscultation. Cardiovascular: Heart rate was regular. I did not hear a murmur. Abdomen: Soft and nontender. Neurologic: Patient is awake. She has a right hemiplegia. There is no tremor. I asked her questions and she started talking but I could not understand what she was saying. Integument: The patient did have some decubitus as mentioned above. There was no skin breakdown. Thank you for the consult. cc: Tj Sherman MD
[2017-06-14] MEDS: PERCOCET-5 PO PRN (20:46)
[2017-06-14] MEDS: DESYREL PO SCH (20:46)
--- NOTE | 2017-06-15 06:21 | CONSULTATION ---
DATE OF CONSULTATION: 06/14/2017 Addendum I went back and reexamined the patient. On the right side, she does indeed have a Port-A-Cath. It is not swollen or tender. Chest x-ray shows the presence of the Port-A-Cath on the right side. I think the Port-A-Cath is the origin of the patient's methicillin-resistant Staph aureus bacteremia and with an organism such as methicillin-resistant Staph aureus, the Port-A-Cath has to be removed in order to clear the infection. The patient's urinary tract infection with Enterococcus is probably asymptomatic and does not need treatment; however, by treating the patient's Staph infection, the Enterococcus will be covered also. cc: Tj Sherman MD
[2017-06-15] MEDS: D5 1/2 NS 1,000 ML IV SCH ×2 (06:26→21:57)
[2017-06-15] MEDS: PERCOCET-5 PO PRN ×3 (06:37→21:56)
--- NOTE | 2017-06-15 07:15 | Diag Imaging Result Doc PS360 ---
EXAM: CHEST-PORTABLE - 06/15/2017 HISTORY: hypoxia TECHNIQUE: Portable chest COMPARISON: 06/11/2017 FINDINGS: Heart size is within normal limits. There is tortuosity of the thoracic aorta which is stable. There is stable mild prominence of central markings. There is no consolidation, substantial pleural effusion, or pneumothorax identified. Central venous catheter remains. IMPRESSION: No acute changes. Electronically signed by Jose Camilo 06/15/2017 7:13 AM
[2017-06-15 08:39] LABS: HEMATOCRIT 30.7 % (37.0-47.0); HEMOGLOBIN 10.2 g/dL (12.0-16.0); MCH 30.4 PG (27-31); MCHC 33.2 g/dL (33-37); MCV 91.6 FL (81-99); MPV 10.9 FL (7.4-10.4); RBC 3.35 XMIL (4.2-5.4)
[2017-06-15 08:57] LABS: AGAP 7; ALBUMIN 2.1 g/dL (3.5-5.0); ALKALINE PHOSPHATASE 95 U/L (32-104); BUN 4 mg/dL (8-22); CALCIUM 8.6 mg/dL (8.8-10.2); CHLORIDE 105 mmol/L (98-107); COSMO 274; GOT 32 U/L (10-30); GPT 29 U/L (10-36); MAGNESIUM 1.6 mg/dL (1.5-2.7); POTASSIUM 2.7 mmol/L (3.5-5.1); SODIUM 138 mmol/L (136-145); TCO2 26 mmol/L (25-35); TOTAL PROTEIN 6.6 g/dL (6.3-8.3)
[2017-06-15] MEDS: ASPIRIN PO SCH (10:15)
[2017-06-15] MEDS: CALTRATE 600 PO SCH ×2 (10:16→21:56)
[2017-06-15] MEDS: PEPCID PO SCH (10:16)
[2017-06-15] MEDS: NEURONTIN PO SCH ×3 (10:16→18:04)
[2017-06-15] MEDS: THERA M PLUS PO SCH (10:16)
[2017-06-15] MEDS: MIRALAX PO SCH (10:17)
[2017-06-15] MEDS: KLOR-CON PO SCH ×2 (10:17→21:56)
[2017-06-15] MEDS: LIORESAL PO SCH ×3 (10:17→18:04)
[2017-06-15] MEDS: CLARITIN PO SCH (10:18)
[2017-06-15] MEDS: FLONASE NAS SCH (10:18)
[2017-06-15] MEDS: POTASSIUM CHLORIDE 20 MEQ/SWI 20 MEQ/100 ML IVPB IV SCH ×2 (13:57→16:44)
--- NOTE | 2017-06-15 14:29 | PROGRESS NOTE ---
DATE: 06/15/2017 SUBJECTIVE: The patient has no complaints. She is getting out of bed. OBJECTIVE: Vital Signs: Blood pressure is 144/69 with a heart rate of 85, respirations are 18, temperature is 99.4 degrees with O2 saturations of 96-98 on 2 L nasal cannula. General: The patient is awake and alert, in no distress. Neck: Supple. Trachea midline. Cardiovascular: Regular rate and rhythm. S1 and S2 appreciated. Pulmonary: Breath sounds are clear with no increased work of breathing noted. Gastrointestinal: Abdomen is soft, nontender, nondistended. Bowel sounds in all 4 quadrants. Extremities: No clubbing, cyanosis, or edema. Calves are nontender. Pulses are palpable x4. LABORATORY DATA: WBC is 18.2 with a hemoglobin of 10.2, hematocrit 30.7, and platelets of 184,000. Sodium is 138, potassium is 2.7, BUN is 4, creatinine 0.7 with a glucose of 116. ASSESSMENT AND PLAN: 1. Urinary tract infection with methicillin-resistant Staphylococcus aureus bacteremia. 2. Fever. 3. Hypernatremia. 4. Hypokalemia. 5. Acute kidney injury, resolved. 6. Leukocytosis stable. PLAN: She was evaluated by Dr. Tj Sherman in infection control, who did start the patient on daptomycin. He also recommended a surgical consult to remove the patient's Port-A-Cath. Surgery has been consulted. We will continue to replete electrolytes and follow labs. Dictated by MANNIE Forde for Dinesh Cruz MD cc: MANNIE Forde MD
[2017-06-15] MEDS: CUBICIN 500 MG in NS 100 ML IV SCH ×2 (16:43→18:19)
--- NOTE | 2017-06-15 16:52 | ECHO REPORT ---
ORDER DATE: 06/15/2017 ECHOCARDIOGRAPHIC MEASUREMENTS: 1. Interventricular septum 1.1. Left ventricular posterior wall 1.1. Diastolic diameter 4.5. Left atrium 3.9. Aorta 3. Technically suboptimal study. Poor acoustic window. Normal left ventricular cavity size. Estimated ejection fraction of 60%. Mitral valve leaflets are normal. Tricuspid valve was normal. 2. Aortic valve leaflets were trileaflet. Peak velocity across the aortic valve less than 2 m/sec. There is no aortic stenosis or regurgitation. There is mild mitral regurgitation. 3. Mild tricuspid regurgitation. Peak velocity across the tricuspid valve was 2.6 m/sec. 4. Technically suboptimal study. Poor acoustic window. 5. Anterior echo-free space suggestive of pericardial fat pad was noted. There is no pericardial effusion or obvious intracardiac mass, thrombus seen. cc: MD Tj Lawson MD
[2017-06-15] MEDS: XARELTO PO SCH (18:04)
--- NOTE | 2017-06-15 21:36 | CONSULTATION ---
DATE OF CONSULTATION: 06/15/2017 HISTORY OF PRESENT ILLNESS: Ms. Mandi Yost is a 72-year-old female residential resident who has been hospitalized with urinary tract infection and fevers. She was unresponsive on and was hospitalized at [facility] for further care. Evidently she has Enterococcus in her urine but MRSA in her blood. She does have a chronic Port-A-Cath in place right side because she has poor peripheral venous access. She gets no regular IV medications but they do draw blood from her port. Her port has been in about 5 or 6 years, prior to her fevers it had not been accessed for several weeks. Her most recent hospitalization was a hip fracture cared for by Dr. Roque. PHYSICAL EXAM: General: On exam Ms. Yost is an older black female who is awake and cooperative. HEENT: She has no jaundice. No oral lesions. No cervical or supraclavicular lymphadenopathy. Heart: Has regular rate. Lungs: Were clear to auscultation and percussion bilaterally. Her ports on the right chest there is no evidence of cellulitis or purulence. This port is being used at this time. It is accessed with the needle. Abdomen: Was soft, nontender without palpable mass. No costovertebral tenderness. Rectal and vaginal: Exams were not performed. Extremities: She does have palpable femoral pulses. She does have peripheral edema. Neurologically: She is awake and cooperative. IMPRESSION: 72-year-old residential resident with fevers and a known urinary tract infection. She also had a positive blood culture, she has port in place that has been there about 5 or 6 years. On clinical exam it does not appear to be grossly infected. Infectious disease Dr. Sherman has evaluated the patient and wants us to consider removal of the port. She is receiving IV antibiotics. PLAN: Fevers persist will have to remove the port, I will have to arrange OR staffing at [facility] for port removal. I have discussed with the family at the bedside and also Dr. Cruz. cc: Alla Gold MD
[2017-06-15] MEDS: TYLENOL PO PRN (21:56)
[2017-06-15] MEDS: DESYREL PO SCH (21:56)
[2017-06-15] MEDS: MOTRIN PO PRN (23:54)
--- NOTE | 2017-06-16 03:52 | PROGRESS NOTE ---
DATE: 06/14/2017 ADDENDUM: Patient was seen and examined. Was discussed with nurse practitioner. We will continue daptomycin. Surgery will evaluate for possible removal of port. If she continues to run a fever, certainly the port will need to be removed. If her fever resolves, we may be able to leave the port at this time. We will continue to follow. The patient is without any other complaints. cc: Dinesh Cruz MD
[2017-06-16 07:04] LABS: HEMATOCRIT 30.8 % (37.0-47.0); MCH 29.9 PG (27-31); MCHC 32.5 g/dL (33-37); MCV 92.2 FL (81-99); MPV 10.7 FL (7.4-10.4); RBC 3.34 XMIL (4.2-5.4)
[2017-06-16 07:28] LABS: AGAP 7; ALBUMIN 2.2 g/dL (3.5-5.0); ALKALINE PHOSPHATASE 89 U/L (32-104); BUN 4 mg/dL (8-22); CALCIUM 8.3 mg/dL (8.8-10.2); CHLORIDE 107 mmol/L (98-107); COSMO 275; GOT 26 U/L (10-30); SODIUM 139 mmol/L (136-145); TCO2 25 mmol/L (25-35); TOTAL PROTEIN 6.6 g/dL (6.3-8.3)
[2017-06-16 07:29] LABS: GPT 24 U/L (10-36)
[2017-06-16] MEDS: DUONEB (A & A) INH PRN (07:43)
[2017-06-16] MEDS: D5 1/2 NS 1,000 ML IV SCH (12:29)
[2017-06-16] MEDS: PERCOCET-5 PO PRN (13:50)
[2017-06-16] MEDS: CALTRATE 600 PO SCH ×2 (13:55→21:05)
[2017-06-16] MEDS: CLARITIN PO SCH (13:55)
[2017-06-16] MEDS: ASPIRIN PO SCH (13:55)
[2017-06-16] MEDS: FLONASE NAS SCH (13:55)
[2017-06-16] MEDS: LIORESAL PO SCH ×3 (13:56→17:11)
[2017-06-16] MEDS: KLOR-CON PO SCH ×2 (13:56→21:05)
[2017-06-16] MEDS: MIRALAX PO SCH (13:56)
[2017-06-16] MEDS: PEPCID PO SCH (13:57)
[2017-06-16] MEDS: NEURONTIN PO SCH ×3 (13:57→17:11)
[2017-06-16] MEDS: THERA M PLUS PO SCH (13:57)
--- NOTE | 2017-06-16 16:10 | PROGRESS NOTE ---
DATE: 06/16/2017 SUBJECTIVE: The patient has no complaints today. She has had no further spike in her temperature. OBJECTIVE: Vital Signs: Blood pressure is 134/67, with a heart rate of 79, respirations are 18, temperature is 97.5 degrees with O2 saturations of 98 to 100% on 2 L nasal cannula. Cardiovascular: Regular rate and rhythm. S1, S2 appreciated. Pulmonary: Breath sounds are clear with no increased work of breathing noted. Back: No CVAT. No spine tenderness. Extremities: No clubbing, cyanosis. She does have some lower extremity edema. Calves nontender. Pulses are palpable x4. DIAGNOSTICS: WBC is 15.7, with a hemoglobin 10, hematocrit 30.8, and platelets of 183,000. Sodium 139, potassium 3, BUN is 4, creatinine 0.7, with a glucose of 115. ASSESSMENT: 1. Urinary tract infection, methicillin-resistant Staphylococcus aureus. 2. Fever. 3. Hypernatremia. 4. Hypokalemia. 5. Acute kidney injury, resolved. 6. Leukocytosis, improving. PLAN: The patient was evaluated by Dr. Gold, general surgery, for evaluation of removing the port. He will follow and he will arrange this. We will continue with her current treatment. Dictated by MANNIE Forde for Dinesh Cruz MD cc: MANNIE Forde MD
[2017-06-16] MEDS: CUBICIN 500 MG in NS 100 ML IV SCH (16:53)
[2017-06-16] MEDS: XARELTO PO SCH (17:11)
[2017-06-16] MEDS ORDERED: REGLAN IV ONE ×2 (18:15→19:00)
[2017-06-16] MEDS ORDERED: PEPCID IV ONE ×2 (18:15→19:00)
[2017-06-16] MEDS ORDERED: XYLOCAINE 1%/EPI 1:100,000 ONE (19:41)
[2017-06-16] MEDS ORDERED: DIPRIVAN 1% ONE (19:41)
[2017-06-16] MEDS ORDERED: XYLOCAINE-MPF 2% ONE (19:41)
[2017-06-16] MEDS ORDERED: VERSED ONE ×2 (19:55→19:56)
--- NOTE | 2017-06-16 20:40 | OPERATIVE NOTE ---
PROCEDURE DATE: 06/16/2017 PREOPERATIVE DIAGNOSIS: Infected right external jugular Port-A-Cath. POSTOPERATIVE DIAGNOSIS: Infected right external jugular Port-A-Cath. PRINCIPAL PROCEDURE: Removal of right external jugular Port-A-Cath. SURGEON: Alla Gold MD. ANESTHESIA: Local with IV sedation. ESTIMATED BLOOD LOSS: 10 mL. DRAINS: None. INDICATIONS: Ms. Christi Yost is a 72-year-old black female group home resident who was hospitalized at [facility] with a urinary tract infection and also positive blood cultures for MRSA. She has a long-standing port in place and Infectious Disease suggests that it be removed. DESCRIPTION OF PROCEDURE: The patient was brought to the operating room, placed supine, received IV sedation. Her right shoulder and chest were prepped and draped within the sterile field. We used local anesthetic at the incision site. We made a small transverse incision below the port, anterior right chest with a 15 blade scalpel. We excised the scar, and this incision was carried down through the subcutaneous tissue to the port. We mobilized the port out of its subcutaneous pocket using cautery, and the port and its catheter were removed in its entirety. Bleeding was controlled using cautery, and we closed the wound in one layer with 4-0 Monocryl subcuticular stitch. Dressings were applied. She will go to the recovery room and then be readmitted to the floor. cc: Alla Gold MD
[2017-06-16] MEDS: DESYREL PO SCH (21:05)
[2017-06-16] MEDS: TYLENOL PO PRN (21:54)
[2017-06-16] MEDS: MOTRIN PO PRN (23:04)
[2017-06-17] MEDS: DUONEB (A & A) INH PRN ×3 (05:04→15:02)
[2017-06-17 07:22] LABS: HEMATOCRIT 28.6 % (37.0-47.0); HEMOGLOBIN 9.3 g/dL (12.0-16.0); MCH 29.8 PG (27-31); MCHC 32.5 g/dL (33-37); MCV 91.7 FL (81-99); MPV 10.4 FL (7.4-10.4); RBC 3.12 XMIL (4.2-5.4)
[2017-06-17 07:50] LABS: AGAP 9; ALBUMIN 2.2 g/dL (3.5-5.0); ALKALINE PHOSPHATASE 93 U/L (32-104); BUN 4 mg/dL (8-22); CHLORIDE 109 mmol/L (98-107); COSMO 278; GOT 23 U/L (10-30); GPT 21 U/L (10-36); POTASSIUM 3.3 mmol/L (3.5-5.1); SODIUM 141 mmol/L (136-145); TCO2 23 mmol/L (25-35); TOTAL PROTEIN 6.4 g/dL (6.3-8.3)
[2017-06-17] MEDS: D5 1/2 NS 1,000 ML IV SCH ×2 (09:33→15:33)
[2017-06-17] MEDS: FLONASE NAS SCH (09:33)
[2017-06-17] MEDS: ASPIRIN PO SCH (09:34)
[2017-06-17] MEDS: PEPCID PO SCH (09:34)
[2017-06-17] MEDS: KLOR-CON PO SCH ×2 (09:34→21:02)
[2017-06-17] MEDS: THERA M PLUS PO SCH (09:34)
[2017-06-17] MEDS: MIRALAX PO SCH (09:34)
[2017-06-17] MEDS: CALTRATE 600 PO SCH ×2 (09:34→21:02)
[2017-06-17] MEDS: NEURONTIN PO SCH ×3 (09:34→16:58)
[2017-06-17] MEDS: CLARITIN PO SCH (09:34)
[2017-06-17] MEDS: LIORESAL PO SCH ×3 (09:34→16:59)
[2017-06-17] MEDS: PERCOCET-5 PO PRN ×2 (09:50→19:21)
[2017-06-17] MEDS ORDERED: BENADRYL PO PRN (09:51)
--- NOTE | 2017-06-17 11:17 | EKG Report ---
Test Performed on : 06/17/2017 09:32:05 AM Test Reason : irregula heartbeat Blood Pressure : / mmHG Vent. Rate : 086 BPM Atrial Rate : 086 BPM P-R Int : 160 ms QRS Dur : 118 ms QT Int : 384 ms P-R-T Axes : 041 001 023 degrees QTc Int : 459 ms Normal sinus rhythm. Low voltage QRS Incomplete right bundle branch block Borderline ECG When compared with ECG of 11-JUN-2017 06:41, T wave inversion no longer evident in V3 and V4 Confirmed by Yifan Cooper DO ([id number]) on 06/21/2017 4:07:37 PM
[2017-06-17] MEDS: MOTRIN PO PRN (12:35)
[2017-06-17] MEDS: CUBICIN 500 MG in NS 100 ML IV SCH (15:28)
[2017-06-17] MEDS: XARELTO PO SCH (16:58)
--- NOTE | 2017-06-17 19:49 | PROGRESS NOTE ---
DATE: 06/17/2017 SUBJECTIVE: Patient without any new complaints. She did have fever late yesterday evening. Denies any chest pain, palpitations. OBJECTIVE: Vital Signs: Reviewed. She is afebrile. She is currently afebrile. Temperature maximum is 102. Heart rate stable. Respiratory 18. General: Patient is awake, alert. She is in no current respiratory distress. Neck: Supple. CARDIOVASCULAR: Regular rate. Chest: Clear. Abdomen: Soft. Extremities: Moves all extremities. Neurologic: No changes. LABORATORY: Reviewed. CBC currently pending. ASSESSMENT: 1. Leukocytosis. 2. Febrile illness. 3. Methicillin-resistant Staphylococcus aureus bacteremia. She had her port removed yesterday. Hopefully, this will allow her bacteremia to improve. PLAN: We will continue antibiotics. She will stay in the hospital until her cultures are negative. At that point, can be transitioned home with IV antibiotics per Dr. Sherman' . cc: Dinesh Cruz MD
[2017-06-17] MEDS: DESYREL PO SCH (21:02)
[2017-06-18] MEDS: TYLENOL PO PRN ×2 (06:39→20:00)
[2017-06-18] MEDS: MIRALAX PO SCH (09:25)
[2017-06-18] MEDS: FLONASE NAS SCH (09:25)
[2017-06-18] MEDS: ASPIRIN PO SCH (09:26)
[2017-06-18] MEDS: CALTRATE 600 PO SCH ×2 (09:26→21:30)
[2017-06-18] MEDS: KLOR-CON PO SCH ×2 (09:26→21:29)
[2017-06-18] MEDS: LIORESAL PO SCH ×3 (09:26→18:02)
[2017-06-18] MEDS: NEURONTIN PO SCH ×3 (09:26→18:02)
[2017-06-18] MEDS: PEPCID PO SCH (09:26)
[2017-06-18] MEDS: THERA M PLUS PO SCH (09:26)
[2017-06-18] MEDS: CLARITIN PO SCH (09:26)
[2017-06-18] MEDS: D5 1/2 NS 1,000 ML IV SCH (09:40)
[2017-06-18] MEDS: DUONEB (A & A) INH PRN ×2 (11:20→14:51)
[2017-06-18] MEDS: CUBICIN 500 MG in NS 100 ML IV SCH (15:25)
[2017-06-18] MEDS: XARELTO PO SCH (18:02)
--- NOTE | 2017-06-18 19:57 | PROGRESS NOTE ---
DATE: 06/18/2017 SUBJECTIVE: Patient without new complaints. States she is eating well. OBJECTIVE: Vital Signs: Reviewed. She has been afebrile for 24 hours. Pulse regular. O2 saturation 96%. General: Patient is awake, alert. She is in no respiratory distress. Neck: Supple. CARDIOVASCULAR: Regular rate. Chest: Clear. Abdomen: Soft. Extremities: Moves extremities no edema. Neurologic: Unchanged from yesterday's exam. ASSESSMENT: 1. Methicillin-resistant Staphylococcus aureus bacteremia. 2. Febrile illness. Has improved since she has had her port removed. 3. Others. PLAN: We will keep the patient in the hospital until her blood cultures are negative. Thankfully, she has been afebrile for 24 hours after her port was removed yesterday. We will continue to follow. Further orders as needed. Hopefully, she will be ready for discharge to rehab soon. cc: Dinesh Cruz MD
[2017-06-18] MEDS: DESYREL PO SCH (21:29)
[2017-06-19] MEDS: D5 1/2 NS 1,000 ML IV SCH ×2 (01:25→14:16)
[2017-06-19] MEDS: TYLENOL PO PRN (04:36)
[2017-06-19] MEDS ORDERED: POTASSIUM CHLORIDE 20% LIQUID PO SCH (09:28)
[2017-06-19] MEDS: LIORESAL PO SCH ×3 (09:34→17:21)
[2017-06-19] MEDS: CLARITIN PO SCH (09:34)
[2017-06-19] MEDS: THERA M PLUS PO SCH (09:34)
[2017-06-19] MEDS: CALTRATE 600 PO SCH ×2 (09:35→21:00)
[2017-06-19] MEDS: ASPIRIN PO SCH (09:35)
[2017-06-19] MEDS: NEURONTIN PO SCH ×3 (09:35→17:21)
[2017-06-19] MEDS: PEPCID PO SCH (09:35)
[2017-06-19] MEDS: FLONASE NAS SCH (09:52)
[2017-06-19] MEDS: MIRALAX PO SCH (09:53)
[2017-06-19 13:13] LABS: AGAP 8; BUN 3 mg/dL (8-22); CALCIUM 8.7 mg/dL (8.8-10.2); CHLORIDE 101 mmol/L (98-107); COSMO 261; SODIUM 132 mmol/L (136-145); TCO2 22 mmol/L (25-35)
[2017-06-19 13:16] LABS: POTASSIUM 6.5 mmol/L (3.5-5.1)
[2017-06-19] MEDS: CUBICIN 500 MG in NS 100 ML IV SCH (15:17)
[2017-06-19] MEDS: XARELTO PO SCH (17:21)
[2017-06-19 19:36] LABS: AGAP 8; BUN 3 mg/dL (8-22); CALCIUM 9.1 mg/dL (8.8-10.2); CHLORIDE 100 mmol/L (98-107); COSMO 261; POTASSIUM 4.8 mmol/L (3.5-5.1); SODIUM 131 mmol/L (136-145); TCO2 24 mmol/L (25-35)
[2017-06-19] MEDS: DESYREL PO SCH (21:01)
[2017-06-19] MEDS: PERCOCET-5 PO PRN ×2 (21:01)
[2017-06-20 06:47] LABS: AGAP 9; BUN 3 mg/dL (8-22); CALCIUM 8.9 mg/dL (8.8-10.2); CHLORIDE 104 mmol/L (98-107); COSMO 269; POTASSIUM 4.4 mmol/L (3.5-5.1); SODIUM 136 mmol/L (136-145); TCO2 23 mmol/L (25-35)
[2017-06-20] MEDS: D5 1/2 NS 1,000 ML IV SCH ×3 (07:14→18:25)
[2017-06-20] MEDS: DUONEB (A & A) INH PRN (07:45)
--- NOTE | 2017-06-20 09:00 | PROGRESS NOTE ---
DATE: 06/19/2017 SUBJECTIVE: Patient without any new complaints. PHYSICAL EXAMINATION: Vital signs reviewed. She is afebrile. Blood pressure is stable. Heart rate is stable. General: The patient is awake, alert. She is in no distress. HEENT: Normocephalic, atraumatic. Neck: Supple. CV: Regular rate. Chest: Clear. ASSESSMENT: 1. Methicillin-resistant Staphylococcus aureus bacteremia. Most recent blood cultures were negative. 2. Infected port. This has been removed, and since removal her blood cultures have become negative and she has been afebrile for 48 hours. 3. Adult failure to thrive. PLAN: The patient will need to be transitioned to rehab. However, she has extremely poor IV access and will need to have need to have a new port placed prior to discharge. Will contact Surgery, and hopefully this can be done soon. cc: Dinesh Cruz MD
[2017-06-20] MEDS: NEURONTIN PO SCH ×3 (09:22→16:49)
[2017-06-20] MEDS: PEPCID PO SCH (09:22)
[2017-06-20] MEDS: MIRALAX PO SCH (09:22)
[2017-06-20] MEDS: CALTRATE 600 PO SCH ×2 (09:22→21:30)
[2017-06-20] MEDS: CLARITIN PO SCH (09:22)
[2017-06-20] MEDS: ASPIRIN PO SCH (09:23)
[2017-06-20] MEDS: FLONASE NAS SCH (09:23)
[2017-06-20] MEDS: THERA M PLUS PO SCH (09:23)
[2017-06-20] MEDS: LIORESAL PO SCH ×3 (09:23→16:48)
[2017-06-20] MEDS: PERCOCET-5 PO PRN ×2 (09:25→21:40)
[2017-06-20 11:57] LABS: HEMATOCRIT 30.5 % (37.0-47.0); HEMOGLOBIN 9.8 g/dL (12.0-16.0); MCH 29.7 PG (27-31); MCHC 32.1 g/dL (33-37); MCV 92.4 FL (81-99); MPV 9.6 FL (7.4-10.4); RBC 3.3 XMIL (4.2-5.4)
--- NOTE | 2017-06-20 14:34 | PROGRESS NOTE ---
DATE: 06/20/2017 SUBJECTIVE: Patient without any new complaints. She is eating well. OBJECTIVE: Vital Signs: Reviewed. She is awake, alert, in no distress. Neck: Supple. CV: Regular rate. Chest: Clear. Abdomen: Soft, obese, nondistended. LABS: Potassium is 4.2. Otherwise CBC, BMP is normal. ASSESSMENT: 1. Enterococcus faecalis urinary tract infection. 2. Persistent fevers. Resolved. 3. Methicillin-resistant Staphylococcus aureus bacteremia. Stable. Currently on daptomycin. 4. Likely infected port has been removed. PLAN: We will continue patient in the hospital until she can get a port placed and then we will be able to discharge to rehab on daptomycin for 6 weeks. Continue to follow. Further orders as needed. cc: Dinesh Cruz MD
[2017-06-20] MEDS: CUBICIN 500 MG in NS 100 ML IV SCH (15:39)
[2017-06-20] MEDS: XARELTO PO SCH (16:48)
[2017-06-20] MEDS: DESYREL PO SCH (21:30)
[2017-06-21] MEDS ORDERED: CALMOSEPTINE OINTMENT TOP PRN (03:23)
[2017-06-21] MEDS: D5 1/2 NS 1,000 ML IV SCH ×2 (07:25→09:24)
[2017-06-21] MEDS: DUONEB (A & A) INH PRN (07:51)
[2017-06-21] MEDS: LIORESAL PO SCH ×3 (09:25→17:25)
[2017-06-21] MEDS: THERA M PLUS PO SCH (09:25)
[2017-06-21] MEDS: NEURONTIN PO SCH ×3 (09:25→17:25)
[2017-06-21] MEDS: MIRALAX PO SCH (09:25)
[2017-06-21] MEDS: PEPCID PO SCH (09:25)
[2017-06-21] MEDS: FLONASE NAS SCH (09:25)
[2017-06-21] MEDS: CALTRATE 600 PO SCH ×2 (09:25→20:32)
[2017-06-21] MEDS: ASPIRIN PO SCH (09:26)
[2017-06-21] MEDS: CLARITIN PO SCH (09:26)
[2017-06-21] MEDS: PERCOCET-5 PO PRN ×3 (09:33→22:57)
[2017-06-21] MEDS: CUBICIN 500 MG in NS 100 ML IV SCH (15:42)
[2017-06-21] MEDS: XARELTO PO SCH (17:25)
--- NOTE | 2017-06-21 19:38 | PROGRESS NOTE ---
DATE: 06/21/2017 SUBJECTIVE: Patient without any new complaints. She notes that she had constipation yesterday. She did have a bowel movement. She also states that she has no appetite, but notes this happens quite often. OBJECTIVE: Vital Signs: Reviewed. She is awake, alert, oriented. She is in no current respiratory distress. Neck: Supple. CARDIOVASCULAR: Regular rate. Chest: Clear. Abdomen: Soft. Extremities: Moves all extremities. Neurologic: No changes. ASSESSMENT: 1. Methicillin-resistant Staph aureus bacteremia, on daptomycin. 2. Leukocytosis. Resolved. 3. Hyperkalemia. Resolved. 4. Enterococcus faecalis urinary tract infection, home Augmentin. 5. Persistent fevers have resolved since having a port removed. PLAN: We will continue daptomycin and Augmentin. We will continue to encourage p.o. We will discuss with Surgery in the a.m. the possibility of having a port replaced. cc: Dinesh Cruz MD
[2017-06-21] MEDS: DESYREL PO SCH (20:33)
[2017-06-22] MEDS: D5 1/2 NS 1,000 ML IV SCH ×3 (00:34→20:35)
[2017-06-22] MEDS: MIRALAX PO SCH (09:43)
[2017-06-22] MEDS: NEURONTIN PO SCH ×3 (09:44→17:43)
[2017-06-22] MEDS: ASPIRIN PO SCH (09:44)
[2017-06-22] MEDS: FLONASE NAS SCH (09:45)
[2017-06-22] MEDS: CALTRATE 600 PO SCH ×2 (09:45→20:34)
[2017-06-22] MEDS: PERCOCET-5 PO PRN ×2 (09:45→20:35)
[2017-06-22] MEDS: THERA M PLUS PO SCH (09:45)
[2017-06-22] MEDS: PEPCID PO SCH (09:45)
[2017-06-22] MEDS: LIORESAL PO SCH ×3 (09:45→17:43)
[2017-06-22] MEDS: CLARITIN PO SCH (09:45)
[2017-06-22] MEDS: CUBICIN 500 MG in NS 100 ML IV SCH (15:15)
[2017-06-22] MEDS: XARELTO PO SCH (17:43)
--- NOTE | 2017-06-22 19:40 | PROGRESS NOTE ---
DATE: 06/22/2017 SUBJECTIVE: Patient without any new complaints. OBJECTIVE: Vital Signs: Reviewed. She is awake, alert, oriented. Blood pressure stable. Temperature 98 degrees, pulse 78, respiratory 10, BP 126/77. General: Patient is awake, alert. She is currently in no respiratory distress. Neck: Supple. CV: Regular rate. Chest: Clear. Abdomen: Soft. ASSESSMENT: 1. Methicillin-resistant Staphylococcus aureus bacteremia. Will consult surgery for placement of port. Dr. Sherman would prefer this over the PICC line. 2. Enterococcus urinary tract infection, continue antibiotics. PLAN: After patient has IV access we can discharge to rehab. cc: Dinesh Cruz MD
[2017-06-22] MEDS: DESYREL PO SCH (20:34)
[2017-06-23] MEDS: D5 1/2 NS 1,000 ML IV SCH ×2 (03:52→11:44)
[2017-06-23] MEDS: ASPIRIN PO SCH (10:03)
[2017-06-23] MEDS: FLONASE NAS SCH (10:03)
[2017-06-23] MEDS: NEURONTIN PO SCH ×3 (10:03→17:41)
[2017-06-23] MEDS: LIORESAL PO SCH ×3 (10:04→17:41)
[2017-06-23] MEDS: THERA M PLUS PO SCH (10:04)
[2017-06-23] MEDS: PEPCID PO SCH (10:04)
[2017-06-23] MEDS: CALTRATE 600 PO SCH ×2 (10:04→20:27)
[2017-06-23] MEDS: CLARITIN PO SCH (10:04)
[2017-06-23] MEDS: MIRALAX PO SCH (10:05)
--- NOTE | 2017-06-23 15:45 | PROGRESS NOTE ---
DATE: 06/23/2017 SUBJECTIVE: Patient has no focal complaints. OBJECTIVE: Blood pressure 148/68, heart rate of 91, respiratory rate 18, temperature 98.6 degrees, 99% on 2 L. Cardiovascular: Regular rate and rhythm. Pulmonary: Bilateral breath sounds. Clear to auscultation. GI: Soft, nontender, nondistended. Bowel sounds are positive. LABORATORY DATA: White count 9, hemoglobin and hematocrit 9 and 30, platelets 393,000. Chemistries are okay. PROBLEM LIST: 1. Methicillin-resistant Staphylococcus aureus bacteremia. We will pursue PICC line. Her last set of blood cultures though is still positive with no identification, but she had Staph aureus in her blood on 06/11/2017. In any case, plan is for at least 2 weeks of IV antibiotics. We will pursue PICC line placement as Dr. Gold is not eager to pursue port placement at this point, and she just got over a port infection. In any case, we will continue follow. DISPOSITION: 1. Pending clinical status, I think she could probably go back as soon as her PICC is placed we may not be able to get that arranged by tomorrow; maybe the next day. 2. Escherichia coli urinary tract infection. Again, on daptomycin which should be adequate coverage for that. cc: Ramiro Vaughn MD
[2017-06-23 16:26] LABS: MPV 8.8 FL (7.4-10.4)
[2017-06-23] MEDS: CUBICIN 500 MG in NS 100 ML IV SCH ×2 (16:34→17:42)
[2017-06-23 17:10] LABS: INR 1.07 (0.86-1.15); PROTIME 14.8 Seconds (12.1-15.5)
[2017-06-23] MEDS: XARELTO PO SCH (17:42)
[2017-06-23] MEDS: DESYREL PO SCH (20:27)
[2017-06-24 06:11] LABS: HEMATOCRIT 31.6 % (37.0-47.0); HEMOGLOBIN 10.1 g/dL (12.0-16.0); MCH 29.2 PG (27-31); MCV 91.3 FL (81-99); MPV 9.2 FL (7.4-10.4); RBC 3.46 XMIL (4.2-5.4)
[2017-06-24 06:37] LABS: AGAP 8; BUN 4 mg/dL (8-22); CALCIUM 9.6 mg/dL (8.8-10.2); CHLORIDE 102 mmol/L (98-107); COSMO 270; MAGNESIUM 1.9 mg/dL (1.5-2.7); SODIUM 137 mmol/L (136-145); TCO2 26 mmol/L (25-35)
[2017-06-24 08:12] VITALS: BP 119/56
[2017-06-24] MEDS: MIRALAX PO SCH (08:44)
[2017-06-24] MEDS: THERA M PLUS PO SCH (08:44)
[2017-06-24] MEDS: PEPCID PO SCH (08:44)
[2017-06-24] MEDS: FLONASE NAS SCH (08:44)
[2017-06-24] MEDS: LIORESAL PO SCH (08:44)
[2017-06-24] MEDS: NEURONTIN PO SCH (08:44)
[2017-06-24] MEDS: ASPIRIN PO SCH (08:44)
[2017-06-24] MEDS: CLARITIN PO SCH (08:44)
[2017-06-24] MEDS: CALTRATE 600 PO SCH (08:44)
[2017-06-24] MEDS ORDERED: NS 250 ML ONE ×2 (11:08→11:45)
--- NOTE | 2017-06-24 11:30 | DISCHARGE SUMMARY ---
ADMISSION DATE: 06/11/2017 DISCHARGE DATE: 06/24/2017 DISCHARGE DIAGNOSES: 1. Methicillin-resistant Staphylococcus aureus bacteremia related to infected port. 2. Escherichia coli urinary tract infection. CONSULTATIONS: 1. Infectious disease, Dr. Sherman. 2. Dr. Gold, surgeon for Port-A-Cath. PROCEDURES: 1. Port-A-Cath removal. 2. PICC line placement. HOSPITAL COURSE: Briefly, the patient was admitted on the with confusion and weakness. She had altered mentation, elevated liver enzymes. She was initially placed on Rocephin for urinary tract infection. She had a fecal impaction on admission. CT scan was obtained because of the impaction issues which showed still persistent fecal impaction, but she had several bowel treatments, enemas and was eventually cleared out. Abdominal ultrasound showed no significant issues. Slowly she clinically improved. I think at some point, though, her blood cultures were positive. She had GPCs in her urine with concern of Enterococcus and she was in consideration for Zyvox. She had been on Rocephin, Zyvox. It was sensitive to ampicillin. She was maintained on Rocephin. Dr. Sherman was consulted and he recommended stopping the antibiotics and placing on daptomycin. Echocardiogram was obtained and a surgical consult was pursued to remove her Port-A-Cath. Echo showed no evidence of vegetations. The patient was stable. Clinically she improved. Her repeat blood cultures were negative. Her fevers had I think resolved. Micro: She had staph in her blood on the . Her blood cultures on the - had 1 culture positive for gram-positive cocci which has still not been resulted. Her urine culture was positive for Enterococcus which was sensitive to ampicillin and Macrobid and vancomycin. Vancomycin is 1. The patient clinically improved. Dr. Sherman recommended 2 weeks of IV antibiotics. There was some concern about replacing her Port-A-Cath, but we ended up putting in a PICC after discussion with Dr. Gold, and Port-A-Cath will need to be replaced at some point. DISCHARGE TREATMENTS: 1. Baclofen 10 t.i.d. 2. Lasix 80 in the morning and 40 at night. 3. Potassium 10 daily. 4. Albuterol. 5. Aspirin 81 daily. 6. Dulcolax calcium 600 b.i.d. 7. Pepcid 20 daily. 8. Flonase 2 t.i.d. 9. Linzess 145 daily. 10. Claritin 10 daily. 11. Multivitamin daily. 12. Bisacodyl 10 rectally as needed. 13. Trazodone 50 at bedtime. PLAN: I am going to add the Xarelto 10 daily, Percocet p.r.n. pain and that is a 7.5 dose. I am going to add MiraLAX 17 g daily, and we will add her Lasix I think will do 80 in the morning and 40 at night. Daptomycin will be 500 mg q. 24 hours, and will do that for 2 weeks after which point she will need follow up to replace her port and follow up with Dr. Sherman. DISCHARGE CONDITION: Stable. TIME SPENT: 32 minute discharge. RECOMMENDATION: I would recommend follow up CBC and basic in 1 week. cc: MD Tj Rojas MD Lynn R. Buckner, MD
== END 2017-06-24 12:45 ==
LOC: P.MEDSURG 06:26 → P.ED 06:26 → SUATTDRO 12:48 → OBSVTOIN 12:48 → UNDODISIN 06-22 15:17
PROVIDERS: ATTEND Internal Medicine